=== PATIENT | female | born 1945 | race Caucasian/White ===

== ENCOUNTER 2021-01-17 12:18 | Emergency (ER) | payer MEDICARE ==
[~2021-01-17] VITALS: Ht 162.6 cm; Wt 104.0 kg
[~2021-01-17 12:18] MED LIST: ASPI-630 PO; ATOR40TA59 PO; DULO60CA7 PO; LISI1TAB23 PO
--- NOTE | 2021-01-17 13:23 | PHYS DOC ---
General Adult EDM: Chief Complaint: LOWER EXT PAIN HPI: HPI: Patient is a 75 year old female who presents with left foot redness and swelling that has been progressive since . Has become increasingly painful, red, swollen. No trauma. No breaks in the skin. No swelling or redness above the ankle. Does have some cramping behind her left leg, that she says has been attributed to a Morgan's cyst in the past. Has had difficulty walking on the foot due to pain. Denies fever/chills. Review of Systems: Review of Systems: Constitutional: Denies fever or chills. [] Eyes: Denies change in visual acuity. [] HENT: Denies nasal congestion or sore throat. [] Respiratory: Denies cough or shortness of breath. [] Cardiovascular: Denies chest pain or edema. [] GI: Denies abdominal pain, nausea, vomiting, bloody stools or diarrhea. [] : Denies dysuria. [] Musculoskeletal: Left foot pain, redness, swelling. Integument: Denies rash. [] Neurologic: Denies headache, focal weakness or sensory changes. [] Endocrine: Denies polyuria or polydipsia. [] Lymphatic: Denies swollen glands. [] Psychiatric: Denies depression or anxiety. [] Heart Score: C/O Chest Pain: No Risk Factors: Risk Factors: DM, Current or recent (<one month) smoker, HTN, HLP, family history of CAD, obesity. Risk Scores: Score 0 - 3: 2.5% MACE over next 6 weeks - Discharge Home Score 4 - 6: 20.3% MACE over next 6 weeks - Admit for Clinical Observation Score 7 - 10: 72.7% MACE over next 6 weeks - Early Invasive Strategies Allergies: Allergies: Allergies Coded Allergies Type Severity Reaction Last Updated Verified No Known Drug Allergies 12/06/20 No Physical Exam: PE: Constitutional: Well developed, well nourished, no acute distress, non-toxic appearance. [] HENT: Normocephalic, atraumatic, bilateral external ears normal, oropharynx moist, no oral exudates, nose normal. [] Eyes: PERRLA, EOMI, conjunctiva normal, no discharge. [] Neck: Normal range of motion, no tenderness, supple, no stridor. [] Cardiovascular:Heart rate regular rhythm, no murmur [] Lungs & Thorax: Bilateral breath sounds clear to auscultation [] Abdomen: Bowel sounds normal, soft, no tenderness, no masses, no pulsatile masses. [] Skin: Left foot with erythema, edema over the dorsum of the foot. Tenderness to palpation in erythematous areas. Back: No tenderness, no CVA tenderness. [] Extremities: Edema overlying the foot, but no edema at the ankle or above. DP pulse 2+ on left. Neurologic: Alert and oriented X 3, normal motor function, normal sensory function, no focal deficits noted. [] Psychologic: Affect normal, judgement normal, mood normal. [] EKG: EKG: [] Radiology/Procedures: Radiology/Procedures: [] Impression: [place] [address] IMAGING REPORT Signed PATIENT: KONSTANTIN LAUREN ACCOUNT: [id number] : 1945 LOCATION: ER AGE: 75 SEX: F EXAM STATUS: REG ER ORD. PHYSICIAN: CEDRIC NUNEZ MD REASON: foot redness, swelling PROCEDURE: VENOUS LOWER EXTREMITY LEFT EXAM: Left lower extremity venous Doppler sonogram. HISTORY: Pain and swelling. TECHNIQUE: Dang scale and color Doppler sonographic evaluation of the left lower extremity veins with spectral waveform analysis was performed. FINDINGS: There is normal color flow, normal compressibility and there are normal spectral waveforms in the common femoral, superficial femoral, popliteal, posterior tibial and greater saphenous veins. There is a 4.4 cm fluid collect ion within the popliteal fossa. IMPRESSION: 1. No Doppler evidence of lower extremity deep venous thrombosis. 2. 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 Electronically signed by: Brenda Flores MD (01/17/2021 1:55 PM) [id number] DICTATED and SIGNED BY: BRENDA FLORES MD DATE: 01/17/21 [id number] [address] [id number] IMAGING REPORT Signed PATIENT: KONSTANTIN LAUREN ACCOUNT: [id number] : 1945 LOCATION: ER AGE: 75 SEX: F EXAM STATUS: REG ER ORD. PHYSICIAN: CEDRIC NUNEZ MD REASON: foot redness, swelling PROCEDURE: FOOT LEFT 3V EXAM: Left foot, 3 views. HISTORY: Redness and swelling. COMPARISON: None. FINDINGS: 3 views of the left foot are obtained. There is no fracture, dislocation or subluxation. There is a tiny corticated ossicle adjacent to the medial aspect of the first carpal phalangeal joint. There is a tiny plantar spur. There is degenerative spurring, subchondral sclerosis and subchondral cyst formation involving the tarsometatarsal joints. IMPRESSION: 1. 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 2. No acute osseous finding. Electronically signed by: Brenda Flores MD (01/17/2021 1:37 PM) [id number] DICTATED and SIGNED BY: BRENDA FLORES MD DATE: 01/17/21 [id number] Course & Med Decision Making: Course & Med Decision Making Pertinent Labs and Imaging studies reviewed. (See chart for details) Patient is 75-year-old female who presents with atraumatic left foot redness, edema, and increasing pain. Neurovascular intact. Good pulses. Doubt vascular process. No systemic symptoms such as fever/chills, nausea, vomiting. X-ray without any lesions. Doubt osteomyelitis. DVT ultrasound negative. Seems most consistent with a cellulitis. We will treat with doxycycline. Return for systemic symptoms such as fever/chills, worsening pain. Heather Disclaimer: Heather Disclaimer: This electronic medical record was generated, in whole or in part, using a voice recognition dictation system. Departure Departure Impression: Primary Impression: Cellulitis of left foot Disposition: HOME / SELF CARE / HOMELESS Condition: STABLE Referrals: NO PCP (PCP) Additional Instructions: Your x-ray and ultrasound were normal. This seems most likely to be a skin infection called cellulitis. I like to treat you with an antibiotic called doxycycline. Please take as prescribed for 7 days. Please call your PCP to schedule follow-up appointment in the next 3 days. I expect that should start to improve by 72 hours. It likely will not improve much in the first 48 hours. If it is not improving by 72 hours please return to the emergency department for reevaluation. Please also return to the emergency department if you develop high fevers, or severely worsening pain. If you do not have a PCP, please call the number for the [facility] at [phone]. Scripts Doxycycline Hyclate (DOXYCYCLINE HYCLATE) 100 Mg Capsule 1 CAP PO BID for 7 Days, #14 CAP Prov: CEDRIC NUNEZ MD 01/17/21 CEDRIC NUNEZ MD Jan 17, 2021 13:23
[2021-01-17 13:30] VITALS: BP 148/64
--- NOTE | 2021-01-17 13:39 | RAD ---
EXAM: Left foot, 3 views. HISTORY: Redness and swelling. COMPARISON: None. FINDINGS: 3 views of the left foot are obtained. There is no fracture, dislocation or subluxation. Th ere is a tiny corticated ossicle adjacent to the medial aspect of the first carpal phalangeal joint. There is a tiny plantar spur. There is degenerative spurring, subchondral sclerosis and subchondral c yst formation involving the tarsometatarsal joints. IMPRESSION: 1. 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 2. No acute osseous finding. Electronically signed by: Brenda Montiel MD (01/17/2021 1:37 PM) [id number]
--- NOTE | 2021-01-17 13:58 | RAD ---
EXAM: Left lower extremity venous Doppler sonogram. HISTORY: Pain and swelling. TECHNIQUE: Dang scale and color Doppler sonographic evaluation of the left lower extremity veins with spectral waveform analysis was performed. FINDINGS: There is normal color flow, normal compressibility and there are normal spectral waveforms in the common femoral, superficial femoral, popliteal, posterior tibial and greater saphenous veins. There is a 4.4 cm fluid collection within the popliteal fossa. IMPRESSION: 1. No Doppler evidence of lower extremity deep venous thrombosis. 2. 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 Electronically signed by: Brenda Montiel MD (01/17/2021 1:55 PM) [id number]
[2021-01-17] MEDS ORDERED: DOXY100C3 PO (14:30)
== END 2021-01-17 14:44 | disposition home or self-care (01) ==
LOC: ER 12:18
DX: L03.116 Cellulitis of left lower limb (principal); M71.22 Synovial cyst of popliteal space [Baker], left knee
CPT/HCPCS: 73630; 93971; 99284-25

== ENCOUNTER 2021-01-25 17:11 | Inpatient (IN) | payer MEDICARE ==
[~2021-01-25] VITALS: Ht 162.6 cm; Wt 104.5 kg
[~2021-01-25 17:11] MED LIST changes: +DOXY100C3 PO
[2021-01-25 17:53] LABS: BASO % 0 % (0-3); EOS % 0 % (0-3); HEMATOCRIT 24.6 % (36.0-47.0); HEMOGLOBIN 8.4 g/dL (12.0-15.5); LYMPH # 1.1 x10^3/uL (1.0-4.8); LYMPH % 9 % (24-48); MEAN CORPUSCULAR HEMOGLOBIN 29 pg (25-35); MEAN CORPUSCULAR HGB CONC 34 g/dL (31-37); MEAN CORPUSCULAR VOLUME 85 fL (79-100); MONO # 0.8 x10^3/uL (0.0-1.1); MONO % 7 % (0-9); NEUT # 10.7 x10^3/uL (1.8-7.7); NEUT % 85 % (31-73); PLATELET COUNT 545 x10^3/uL (140-400); RED CELL DISTRIBUTION WIDTH 13.7 % (11.5-14.5); WHITE BLOOD COUNT 12.7 x10^3/uL (4.0-11.0)
--- NOTE | 2021-01-25 17:53 | PHYS DOC ---
Past Medical History Past Medical History: CAD, Hypertension Past Surgical History: No Surgical History Smoking Status: Never Smoker Alcohol Use: None General Adult EDM: Chief Complaint: VOMITING BLOOD HPI: HPI: Patient is a 75 year old female who present to ER for evaluation of vomiting blood this morning. Patient vomited one time, she noted blood in her vomitus. Patient denies any abdominal pain, no chest pain, no cough, no fever, no trouble breathing. Patient is only on a baby aspirin a day. Patient denies any abdominal pain , denies any constipation or diarrhea. Patient denies any blood in the stool. Patient just had one episode of vomiting blood this morning. Patient denies any headache. Patient was diagnosed with cellulitis of her left foot on January 17, 2021. Patient was put on doxycycline 100 mg twice a day. Review of Systems: Review of Systems: Constitutional: Denies fever or chills. [] Eyes: Denies change in visual acuity. [] HENT: Denies nasal congestion or sore throat. [] Respiratory: Denies cough or shortness of breath. [] Cardiovascular: Denies chest pain or edema. [] GI: Denies abdominal pain, nausea, bloody stools or diarrhea. Positive for 1 episode of vomiting blood. : Denies dysuria. [] Musculoskeletal: Denies back pain or joint pain. [] Integument: Denies rash. [] Neurologic: Denies headache, focal weakness or sensory changes. [] Endocrine: Denies polyuria or polydipsia. [] Lymphatic: Denies swollen glands. [] Psychiatric: Denies depression or anxiety. [] Heart Score: C/O Chest Pain: N/A Risk Factors: Risk Factors: DM, Current or recent (<one month) smoker, HTN, HLP, family history of CAD, obesity. Risk Scores: Score 0 - 3: 2.5% MACE over next 6 weeks - Discharge Home Score 4 - 6: 20.3% MACE over next 6 weeks - Admit for Clinical Observation Score 7 - 10: 72.7% MACE over next 6 weeks - Early Invasive Strategies Allergies: Allergies: Allergies Coded Allergies Type Severity Reaction Last Updated Verified No Known Drug Allergies 12/06/20 No Physical Exam: PE: Constitutional: Well developed, well nourished, no acute distress, non-toxic appearance. [] HENT: Normocephalic, atraumatic, bilateral external ears normal, oropharynx moist, no oral exudates, nose normal. [] Eyes: PERRLA, EOMI, conjunctiva normal, no discharge. [] Neck: Normal range of motion, no tenderness, supple, no stridor. [] Cardiovascular:Heart rate regular rhythm, no murmur [] Lungs & Thorax: Bilateral breath sounds clear to auscultation [] Abdomen: Bowel sounds normal, soft, no tenderness, no masses, no pulsatile masses. [] Skin: Warm, dry, no erythema, no rash. [] Back: No tenderness, no CVA tenderness. [] Extremities: No tenderness, no cyanosis, no clubbing, ROM intact, no edema. [] Neurologic: Alert and oriented X 3, normal motor function, normal sensory function, no focal deficits noted. [] Psychologic: Affect normal, judgement normal, mood normal. [] EKG: EKG: [] Radiology/Procedures: Radiology/Procedures: [] Course & Med Decision Making: Course & Med Decision Making Pertinent Labs and Imaging studies reviewed. (See chart for details) Patient is a 74-year-old female who present to ER due to vomiting blood, one episode of this morning. Patient is only on a baby aspirin a day. Patient denies any abdominal pain, no chest pain, no trouble breathing, no fever. Examination did not show any acute problem, no abdominal tenderness to palpation.. Will check some basic lab work and an acute abdominal series. Patient's care has been endorsed to the incoming physician at shift change Dr. Kamilah Hernandez. Heather Disclaimer: Heather Disclaimer: This electronic medical record was generated, in whole or in part, using a voice recognition dictation system. Departure Departure Impression: Primary Impression: Hematemesis Condition: STABLE Referrals: NO PCP (PCP) FELA JUAREZ DO Jan 25, 2021 17:52
[2021-01-25 18:01] LABS: CREATININE 1.9 mg/dL (0.6-1.0); GFR 25.9; POTASSIUM 3.8 mmol/L (3.5-5.1)
[2021-01-25 18:07] LABS: ALBUMIN 2.5 g/dL (3.4-5.0); ALBUMIN/GLOBULIN RATIO 0.6 (1.0-1.7); MAGNESIUM 1.6 mg/dL (1.8-2.4); TOTAL BILIRUBIN 0.2 mg/dL (0.2-1.0); TOTAL PROTEIN 6.9 g/dL (6.4-8.2)
[2021-01-25 18:57] LABS: ACETAMIN < 2 mcg/ml (10-30)
[2021-01-25 19:11] LABS: GASTRIC OB PAT POSITIVE (NEG)
--- NOTE | 2021-01-25 19:21 | RAD ---
Three-view acute abdominal series. HISTORY: Vomiting blood 3 views were taken for an acute abdominal series. Lungs are free of infiltrates. Heart is normal in s ize. There is thoracolumbar scoliosis. There is arthritis in the right shoulder. There is no obvious free air on the portable AP upright view. There is mild gas in the colon. There is no small bowel obs truction. There is degenerative change and scoliosis in the lumbar spine. IMPRESSION: 1. No bowel obstruction or acute finding in the abdomen. 2. Thoracolumbar scoliosis with degenerative change. 3. No acute infiltrates. Electronically signed by: Johny Spangler MD (01/25/2021 7:19 PM) [facility]
[2021-01-25] MEDS ORDERED: PANTOPRAZOLE IV PUSH 40 MG VIAL. IVP ONE (19:30)
[2021-01-25] MEDS ORDERED: IV NORMAL SALINE 1000ML BAG 1,000 ML IV ONE (19:30)
[2021-01-25] MEDS ORDERED: BISACODYL 10 MG SUPP.RECT. PR PRN (19:30)
[2021-01-25 21:00] VITALS: BP 132/41
[2021-01-25] MEDS: PANTOPRAZOLE SODIUM IV DRIP 80 MG in IV NORMAL SALINE 100ML 100 ML IV SCH (21:08)
[2021-01-25 23:00] VITALS: BP 127/62
[2021-01-26] VITALS (9 sets, daily range): BP systolic 95–132; BP diastolic 59–69
[2021-01-26] MEDS: MORPHINE SULFATE 2 MG/ML INJ. IV PRN ×2 (03:47→05:54)
--- NOTE | 2021-01-26 07:12 | PDOC1 ---
History and Physical Date of Admission Date of Admission DATE: 01/26/21 TIME: 07:06 Identification/Chief Complaint Chief Complaint Vomiting blood Source Source: Patient History of Present Illness History of Present Illness Ms Harper is a 75 year old female w/ PMHx HTN, CAD with SERGE x1, HLD, anxiety who present to ER for evaluation of vomiting blood 01/25/21 in the morning. Patient vomited one time, she noted blood in her vomitus. Her brought it in and there was > 500cc red gelatinous material. Patient is only on a baby aspirin a day, has been instructed by her primary care physician not to take ibuprofen to avoid renal side effects. She does have epigastric abdominal pain with associated nausea, denies any constipation or diarrhea and no blood in the stool, but has had dark tarry stools over the past 24 hours. Patient just had one episode of vomiting blood in the morning. Patient denies any headache. Patient was diagnosed with cellulitis of her left foot on January 17, 2021 and possible left bakers cyst. Patient was put on doxycycline 100 mg twice a day and topical voltaren with some improvement. Since then over the past 2 days she has had more severe pain in the dorsum of her left foot and today is unable to bear weight on it. WBC 12.7, Hb 8.4, platelets 545, NA 134, K3.8, BUN 82, CR 1.9, glucose 194, calcium 9, mag 1.6, bilirubin 0.2, AST 11, ALT 14, albumin 2.5, acetaminophen level undetectable, gastric occult positive. Acute abdominal series with no obstruction no acute abnormalities. Admitted for further care. Past Medical History Cardiovascular: CAD, HTN, Hyperlipidemia Past Surgical History Past Surgical History: Other (cardiac stenting) Family History Family History: Heart Disease, High Cholestrol, Hypertension Social History Smoke: No ALCOHOL: none Drugs: None Current Problem List Problem List Problems Medical Problems: (1) Hematemesis Status: Acute Current Medications Current Medications Current Medications Pantoprazole Sodium (PROTONIX VIAL for IV PUSH) 80 mg 1X ONCE IVP Last administered on 01/25/21at 20:32; Start 01/25/21 at 19:30; Stop 01/25/21 at 19:31; Status DC Pantoprazole Sodium 80 mg/ Sodium Chloride 100 ml @ 10 mls/hr Q10H IV Last a dministered on 01/25/21at 21:08; Start 01/25/21 at 20:00; Stop 01/28/21 at 19:59 Morphine Sulfate (Morphine Sulfate) 1 mg PRN Q1HR PRN IV PAIN Last administered on 01/26/21at 05:54; Start 01/25/21 at 19:30 Bisacodyl (Dulcolax Supp) 10 mg PRN DAILY PRN [place] CONSTIPATION; Start 01/25/21 at 19:30 Sodium Chloride 1,000 ml @ 125 mls/hr 1X ONCE IV Last administered on 01/25/21at 21:08; Start 01/25/21 at 19:30; Stop 01/26/21 at 03:29; Status DC Influenza Virus Vaccine Quadrival (Flulaval Quad [id number] Syringe) 0.5 ml ONCE ONCE VAX IM ; Start 01/26/21 at 09:00; Stop 01/26/21 at 09:01 Active Scripts Active Reported Atorvastatin Calcium 40 Mg Tablet 40 Mg PO DAILY Lisinopril-Hctz 10-12.5 Mg Tab (Lisinopril/Hydrochlorothiazide) 1 Each Tablet 1 Tab PO DAILY Aspirin 81 Mg Tab.chew 81 Mg PO DAILY Allergies Allergies: Coded Allergies: No Known Drug Allergies (Unverified , 12/06/20) ROS General: YES: Fatigue, Malaise; No: Chills, Night Sweats, Appetite, Other PSYCHOLOGICAL ROS: YES: Anxiety; No: Behavioral Disorder, Concentration difficultie, Decreased libido, Depression, Disorientation, Hallucinations, Hostility, Irritablity, Memory difficulties, Mood Swings, Obsessive thoughts, Physical abuse, Sexual abuse, Sleep disturbances, Suicidal ideation, Other Eyes: No Blurry vision, No Decreased vision, No Double vision, No Dry eyes, No Excessive tearing, No Eye Pain, No Itchy Eyes, No Loss of vision, No Photophobia, No Scotomata, No Uses contacts, No Uses glasses, No Other HEENT: No: Heacaches, Visual Changes, Hearing change, Nasal congestion, Nasal discharge, Oral lesions, Sinus pain, Sore Throat, Epistaxis, Sneezing, Snoring, Tinnitus, Vertigo, Vocal changes, Other ALLERGY AND IMMUNOLOGY: No: Hives, Insect Bite Sensitivity, Itchy/Watery Eyes, Nasal Congestion, Post Nasal Drip, Seasonal Allergies, Other Hematological and Lymphatic: No: Bleeding Problems, Blood Clots, Blood Transfusions, Brusing, Night Sweats, Pallor, Swollen Lymph Nodes, Other ENDOCRINE: No: Breast Changes, Galactorrhea, Hair Pattern Changes, Hot Flashes, Malaise/lethargy, Mood Swings, Palpitations, Polydipsia/polyuria, Skin Changes, Temperature Intolerance, Unexpected Weight Changes, Other Breast: No New/Changing Breast Lumps, No Nipple changes, No Nipple discharge, No Other Respiratory: No: Cough, Hemoptysis, Orthopnea, Pleuritic Pain, Shortness of breath, SOB with excertion, Sputum Changes, Stridor, Tachypnea, Wheezing, Other Cardiovascular: No Chest Pain, No Palpitations, No Orthopnea, No Paroxysmal Noc. Dyspnea, No Edema, No Lt Headedness, No Other Gastrointestinal: Yes Nausea, Yes Vomiting, Yes Abdominal Pain, Yes Melena Genitourinary: No Dysuria, No Frequency, No Incontinence, No Hematuria, No Retention, No Discharge, No Urgency, No Pain, No Flank Pain, No Other, No , No , No , No , No , No , No Musculoskeletal: No Gait Disturbance, No Joint Pain, No Joint Stiffness, No Joint Swelling, No Muscle Pain, No Muscular Weakness, No Pain In:, No Swelling In:, No Other Neurological: No Behavorial Changes, No Bowel/Bladder ControlChng, No Confus ion, No Dizziness, No Gait Disturbance, No Headaches, No Impaired Coord/balance, No Memory Loss, No Numbness/Tingling, No Seizures, No Speech Problems, No Tremors, No Visual Changes, No Weakness, No Other Skin: No Dry Skin, No Eczema, No Hair Changes, No Lumps, No Mole Changes, No Mottling, No Nail Changes, No Pruritus, No Rash, No Skin Lesion Changes, No Othe r, No Acne Physical Exam General: Alert, Oriented X3, Cooperative, moderate distress HEENT: Atraumatic, PERRLA, EOMI, Mucous membr. moist/pink Lungs: Clear to auscultation, Normal air movement Heart: S1S2, RRR, no thrills, no rubs, no gallops, no murmurs Abdomen: Normal bowel sounds, Soft, No hepatosplenomegaly, No masses, Other (epigastric tenderness) Extremities: No clubbing, No cyanosis, No edema, Normal pulses, Other (tender swollen dorsum of left foot. No erythema) Skin: No rashes, No breakdown, No significant lesion Neuro: Normal speech, Strength at 5/5 X4 ext, Normal tone, Sensation intact, Cranial nerves 3-12 NL, Reflexes 2+ Psych/Mental Status: Mental status NL, Mood NL Vitals Vitals Vital Signs Date Time Temp Pulse Resp B/P (MAP) Pulse Ox O2 Delivery O2 Flow Rate FiO2 01/26/21 03:58 98.3 85 20 123/63 (83) 97 98.3 01/25/21 21:15 Room Air Labs Labs Laboratory Tests Test 01/25/21 17:37 01/25/21 18:09 01/25/21 19:00 White Blood Count 12.7 x10^3/uL (4.0-11.0) Red Blood Count 2.90 x10^6/uL (3.50-5.40) Hemoglobin 8.4 g/dL (12.0-15.5) Hematocrit 24.6 % (36.0-47.0) Mean Corpuscular Volume 85 fL (79-100) Mean Corpuscular Hemoglobin 29 pg (25-35) Mean Corpuscular Hemoglobin Concent 34 g/dL (31-37) Red Cell Distribution Width 13.7 % (11.5-14.5) Platelet Count 545 x10^3/uL (140-400) Neutrophils (%) (Auto) 85 % (31-73) Lymphocytes (%) (Auto) 9 % (24-48) Monocytes (%) (Auto) 7 % (0-9) Eosinophils (%) (Auto) 0 % (0-3) Basophils (%) (Auto) 0 % (0-3) Neutrophils # (Auto) 10.7 x10^3/uL (1.8-7.7) Lymphocytes # (Auto) 1.1 x10^3/uL (1.0-4.8) Monocytes # (Auto) 0.8 x10^3/uL (0.0-1.1) Eosinophils # (Auto) 0.0 x10^3/uL (0.0-0.7) Basophils # (Auto) 0.0 x10^3/uL (0.0-0.2) Sodium Level 134 mmol/L (136-145) Potassium Level 3.8 mmol/L (3.5-5.1) Chloride Level 97 mmol/L (98-107) Carbon Dioxide Level 25 mmol/L (21-32) Anion Gap 12 (6-14) Blood Urea Nitrogen 82 mg/dL (7-20) Creatinine 1.9 mg/dL (0.6-1.0) Estimated GFR (Cockcroft-Gault) 25.9 BUN/Creatinine Ratio 43 (6-20) Glucose Level 194 mg/dL (70-99) Calcium Level 9.0 mg/dL (8.5-10.1) Magnesium Level 1.6 mg/dL (1.8-2.4) Total Bilirubin 0.2 mg/dL (0.2-1.0) Aspartate Amino Transf (AST/SGOT) 11 U/L (15-37) Alanine Aminotransferase (ALT/SGPT) 14 U/L (14-59) Alkaline Phosphatase 71 U/L (46-116) Total Protein 6.9 g/dL (6.4-8.2) Albumin 2.5 g/dL (3.4-5.0) Albumin/Globulin Ratio 0.6 (1.0-1.7) Acetaminophen Level < 2 mcg/ml (10-30) Acetaminophen Last Dose Date Acetaminophen Last Dose Time Prothrombin Time 14.0 SEC (11.7-14.0) Prothromb Time International Ratio 1.1 (0.8-1.1) Activated Partial Thromboplast Time 36 SEC (24-38) Gastric Fluid Occult Blood Positive (NEG) Laboratory Tests Test 01/25/21 17:37 01/25/21 18:09 01/25/21 19:00 White Blood Count 12.7 x10^3/uL (4.0-11.0) Red Blood Count 2.90 x10^6/uL (3.50-5.40) Hemoglobin 8.4 g/dL (12.0-15.5) Hematocrit 24.6 % (36.0-47.0) Mean Corpuscular Volume 85 fL (79-100) Mean Corpuscular Hemoglobin 29 pg (25-35) Mean Corpuscular Hemoglobin Concent 34 g/dL (31-37) Red Cell Distribution Width 13.7 % (11.5-14.5) Platelet Count 545 x10^3/uL (140-400) Neutrophils (%) (Auto) 85 % (31-73) Lymphocytes (%) (Auto) 9 % (24-48) Monocytes (%) (Auto) 7 % (0-9) Eosinophils (%) (Auto) 0 % (0-3) Basophils (%) (Auto) 0 % (0-3) Neutrophils # (Auto) 10.7 x10^3/uL (1.8-7.7) Lymphocytes # (Auto) 1.1 x10^3/uL (1.0-4.8) Monocytes # (Auto) 0.8 x10^3/uL (0.0-1.1) Eosinophils # (Auto) 0.0 x10^3/uL (0.0-0.7) Basophils # (Auto) 0.0 x10^3/uL (0.0-0.2) Sodium Level 134 mmol/L (136-145) Potassium Level 3.8 mmol/L (3.5-5.1) Chloride Level 97 mmol/L (98-107) Carbon Dioxide Level 25 mmol/L (21-32) Anion Gap 12 (6-14) Blood Urea Nitrogen 82 mg/dL (7-20) Creatinine 1.9 mg/dL (0.6-1.0) Estimated GFR (Cockcroft-Gault) 25.9 BUN/Creatinine Ratio 43 (6-20) Glucose Level 194 mg/dL (70-99) Calcium Level 9.0 mg/dL (8.5-10.1) Magnesium Level 1.6 mg/dL (1.8-2.4) Total Bilirubin 0.2 mg/dL (0.2-1.0) Aspartate Amino Transf (AST/SGOT) 11 U/L (15-37) Alanine Aminotransferase (ALT/SGPT) 14 U/L (14-59) Alkaline Phosphatase 71 U/L (46-116) Total Protein 6.9 g/dL (6.4-8.2) Albumin 2.5 g/dL (3.4-5.0) Albumin/Globulin Ratio 0.6 (1.0-1.7) Acetaminophen Level < 2 mcg/ml (10-30) Acetaminophen Last Dose Date Acetaminophen Last Dose Time Prothrombin Time 14.0 SEC (11.7-14.0) Prothromb Time International Ratio 1.1 (0.8-1.1) Activated Partial Thromboplast Time 36 SEC (24-38) Gastric Fluid Occult Blood Positive (NEG) Images Images Acute abdomen series: 3 views were taken for an acute abdominal series. Lungs are free of infiltrates. Heart is normal in size. There is thoracolumbar scoliosis. There is arthritis in the right shoulder. There is no obvious free air on the portable AP upright view. There is mild gas in the colon. There is no small bowel obstruction. There is degenerative change and scoliosis in the lumbar spine. IMPRESSION: 1. No bowel obstruction or acute finding in the abdomen. 2. Thoracolumbar scoliosis with degenerative change. 3. No acute infiltrates. VTE Prophylaxis Ordered VTE Prophylaxis Devices: Yes VTE Pharmacological Prophylaxi: Contraindicated Assessment/Plan Assessment/Plan A/P: Hematemesis - with acute blood loss anemia. GI consulted. Protonix GTT. Monitor serial H&H. Type and screen Intractable left foot pain - will repeat imaging, consult podiatry for further treatment of midfoot arthritis YARED - likely vasomotor nephropathy from vomiting in the setting of taking diuretics. Hydrate HTN - hold DAQUAN/HCTZ for YARED. hold asa for UGIB Leukocytosis - likely reactive with UGIB. will trend Hyponatremia - likely hypovolemic, will trend after hydration HLD - hold statin while NPO CAD s/p stenting - remote history, hold ASA for GI bleed FEN - NPO PPX - SCDs, PPI FULL CODE Dispo - inpatient for above Justifications for Admission Abdominal Pain Indications Is NPO status required?: Yes Justification for admission: Patient may require to be NPO for greater 24hours making it medically necessary to manage patient as inpatient. Other Justification VANDANA GANDHI MD Jan 26, 2021 07:12
[2021-01-26] MEDS ORDERED: ACETAMINOPHEN 650 MG SUPP.RECT. PR PRN (07:15)
[2021-01-26 07:32] LABS: BASO % 0 % (0-3); EOS # 0.1 x10^3/uL (0.0-0.7); EOS % 1 % (0-3); HEMATOCRIT 21.1 % (36.0-47.0); HEMOGLOBIN 7.2 g/dL (12.0-15.5); LYMPH # 1.9 x10^3/uL (1.0-4.8); LYMPH % 18 % (24-48); MEAN CORPUSCULAR HEMOGLOBIN 29 pg (25-35); MEAN CORPUSCULAR HGB CONC 34 g/dL (31-37); MEAN CORPUSCULAR VOLUME 85 fL (79-100); MONO # 0.7 x10^3/uL (0.0-1.1); MONO % 7 % (0-9); NEUT # 7.9 x10^3/uL (1.8-7.7); NEUT % 75 % (31-73); PLATELET COUNT 505 x10^3/uL (140-400); RED BLOOD COUNT 2.49 x10^6/uL (3.50-5.40); WHITE BLOOD COUNT 10.5 x10^3/uL (4.0-11.0)
[2021-01-26 08:17] LABS: CALCIUM 8.8 mg/dL (8.5-10.1); CREATININE 1.5 mg/dL (0.6-1.0); POTASSIUM 3.6 mmol/L (3.5-5.1)
[2021-01-26] MEDS: PANTOPRAZOLE SODIUM IV DRIP 80 MG in IV NORMAL SALINE 100ML 100 ML IV SCH (08:48)
[2021-01-26] MEDS ORDERED: FLU VACC QUAD 21-22 (6MOS+) PF 0.5 ML SYRINGE. VAX IM ONE (09:00)
[2021-01-26] MEDS ORDERED: fentaNYL PF VIAL 100 MCG/2 ML VIAL IVP PRN (09:00)
--- NOTE | 2021-01-26 09:25 | PDOC2 ---
GI CONSULT Date of Service: DATE: 01/26/21 TIME: 09:24 Reason For Consult: hematemesis HPI: HPI: 75 y/o female admitted through ER. Dizziness w/ standing for a couple weeks. Yesterday morning at 10:30, "I tried to pass out" in the restroom and then vomited "black" and had a black stool. Occasional heartburn (improved w/ avoidance of spicy foods and increased milk consumption). No dysphagia, chronic n/v, abd pain, diarrhea, constipation, weight loss, or hematochezia. Decreased appetite w/ recent LLE cellulitis (has been on antibiotic). No previous EGD or colonoscopy. No GB, liver, pancreas, or PUD history. Advised by PCP not to take NSAIDs due to possible harm to kidneys. Takes ASA 81mg QD. Was taking Tylenol for cellulitis discomfort. Denies h/o anemia. Indicates stressful home life w/ autistic granddaughter. PMH: PMH: CAD w/ stents, GA, HTN, HLD, anxiety/depression Social History: Smoke: No ALCOHOL: none Drugs: None ROS: GEN: Denies fevers, chills, sweats HEENT: Denies blurred vision, sore throat CV: Denies chest pain RESP: Denies shortness of air, cough GI: Per HPI : Denies hematuria, dysuria ENDO: Denies weight changes NEURO: +dizziness MSK: +weakness SKIN: Denies jaundice, pruritus Vitals: Vitals: Vital Signs Date Time Temp Pulse Resp B/P (MAP) Pulse Ox O2 Delivery O2 Flow Rate FiO2 01/26/21 08:30 Room Air 01/26/21 07:00 98.4 85 18 128/62 (84) 93 98.4 Labs: Labs: Laboratory Tests Test 01/25/21 17:37 01/25/21 18:09 01/25/21 19:00 01/26/21 06:45 White Blood Count 12.7 x10^3/uL (4.0-11.0) 10.5 x10^3/uL (4.0-11.0) Red Blood Count 2.90 x10^6/uL (3.50-5.40) 2.49 x10^6/uL (3.50-5.40) Hemoglobin 8.4 g/dL (12.0-15.5) 7.2 g/dL (12.0-15.5) Hematocrit 24.6 % (36.0-47.0) 21.1 % (36.0-47.0) Mean Corpuscular Volume 85 fL (79-100) 85 fL (79-100) Mean Corpuscular Hemoglobin 29 pg (25-35) 29 pg (25-35) Mean Corpuscular Hemoglobin Concent 34 g/dL (31-37) 34 g/dL (31-37) Red Cell Distribution Width 13.7 % (11.5-14.5) 14.0 % (11.5-14.5) Platelet Count 545 x10^3/uL (140-400) 505 x10^3/uL (140-400) Neutrophils (%) (Auto) 85 % (31-73) 75 % (31-73) Lymphocytes (%) (Auto) 9 % (24-48) 18 % (24-48) Monocytes (%) (Auto) 7 % (0-9) 7 % (0-9) Eosinophils (%) (Auto) 0 % (0-3) 1 % (0-3) Basophils (%) (Auto) 0 % (0-3) 0 % (0-3) Neutrophils # (Auto) 10.7 x10^3/uL (1.8-7.7) 7.9 x10^3/uL (1.8-7.7) Lymphocytes # (Auto) 1.1 x10^3/uL (1.0-4.8) 1.9 x10^3/uL (1.0-4.8) Monocytes # (Auto) 0.8 x10^3/uL (0.0-1.1) 0.7 x10^3/uL (0.0-1.1) Eosinophils # (Auto) 0.0 x10^3/uL (0.0-0.7) 0.1 x10^3/uL (0.0-0.7) Basophils # (Auto) 0.0 x10^3/uL (0.0-0.2) 0.0 x10^3/uL (0.0-0.2) Sodium Level 134 mmol/L (136-145) 138 mmol/L (136-145) Potassium Level 3.8 mmol/L (3.5-5.1) 3.6 mmol/L (3.5-5.1) Chloride Level 97 mmol/L (98-107) 103 mmol/L (98-107) Carbon Dioxide Level 25 mmol/L (21-32) 26 mmol/L (21-32) Anion Gap 12 (6-14) 9 (6-14) Blood Urea Nitrogen 82 mg/dL (7-20) 69 mg/dL (7-20) Creatinine 1.9 mg/dL (0.6-1.0) 1.5 mg/dL (0.6-1.0) Estimated GFR (Cockcroft-Gault) 25.9 34.0 BUN/Creatinine Ratio 43 (6-20) Glucose Level 194 mg/dL (70-99) 113 mg/dL (70-99) Calcium Level 9.0 mg/dL (8.5-10.1) 8.8 mg/dL (8.5-10.1) Magnesium Level 1.6 mg/dL (1.8-2.4) Total Bilirubin 0.2 mg/dL (0.2-1.0) Aspartate Amino Transf (AST/SGOT) 11 U/L (15-37) Alanine Aminotransferase (ALT/SGPT) 14 U/L (14-59) Alkaline Phosphatase 71 U/L (46-116) Total Protein 6.9 g/dL (6.4-8.2) Albumin 2.5 g/dL (3.4-5.0) Albumin/Globulin Ratio 0.6 (1.0-1.7) Acetaminophen Level < 2 mcg/ml (10-30) Acetaminophen Last Dose Date Acetaminophen Last Dose Time Prothrombin Time 14.0 SEC (11.7-14.0) Prothromb Time International Ratio 1.1 (0.8-1.1) Activated Partial Thromboplast Time 36 SEC (24-38) Gastric Fluid Occult Blood Positive (NEG) Allergies: Coded Allergies: No Known Drug Allergies (Unverified , 12/06/20) Medications: Current Medications Medications (Trade) Dose Ordered Sig/Ajay Route PRN Reason Start Time Stop Time Status Last Admin Dose Admin Pantoprazole Sodium (PROTONIX VIAL for IV PUSH) 80 mg 1X ONCE IVP 01/25/21 19:30 01/25/21 19:31 DC 01/25/21 20:32 Pantoprazole Sodium 80 mg/ Sodium Chloride 100 ml @ 10 mls/hr Q10H IV 01/25/21 20:00 01/28/21 19:59 01/26/21 08:48 Morphine Sulfate (Morphine Sulfate) 1 mg PRN Q1HR PRN IV PAIN 01/25/21 19:30 01/26/21 05:54 Sodium Chloride 1,000 ml @ 125 mls/hr 1X ONCE IV 01/25/21 19:30 01/26/21 03:29 DC 01/25/21 21:08 Imaging: Imaging: AAS 01/25 IMPRESSION: 1. No bowel obstruction or acute finding in the abdomen. 2. Thoracolumbar scoliosis with degenerative change. 3. No acute infiltrates. PE: GEN: NAD HEENT: Atraumatic, PERRL LUNGS: CTAB HEART: RRR ABD: NABS, S/ND/NT EXTREMITY: No edema SKIN: No jaundice NEURO/PSYCH: A & O 3 A/P: A/P: ?hematemesis/melena Normocytic anemia, YARED Recent cellulitis, decreased appetite Occasional heartburn CRC screen - none -- EGD tomorrow r/o UGI source. If unrevealing, plan for outpt colonoscopy - she will consider. IV PPI, transfuse 1 unit pRBCs, check anemia parameters. Okay to clear liquids today, NPO at midnight. COVID pending. PRETTY RO Jan 26, 2021 09:25
[2021-01-26] MEDS: DICLOFENAC SODIUM 1% TOPICAL GEL 100GM TUBE. TP SCH ×2 (09:56→21:33)
[2021-01-26] MEDS ORDERED: MAGNESIUM SULFATE 1GM 100 ML IV ONE (10:00)
[2021-01-26] MEDS: CYANOCOBALAMIN (VITAMIN B-12) 1,000 MCG/ML VIAL. IM SCH (12:38)
--- NOTE | 2021-01-26 13:24 | NUR ---
SS following for discharge planning. SS reviewed pt chart and discussed with pt RN. Pt is from home with spouse and is currently on room air. COVID19 negative. GI consulted. EGD tomorrow. NPO for procedure. SS will continue to follow for discharge planning.
--- NOTE | 2021-01-26 13:44 | RAD ---
Left foot 3 views. HISTORY: Worsening pain, unable to bear weight 3 views were taken for an acute abdominal series. There is joint space narrowing and erosive changes suggesting arthritis at the second third tarsal metatarsal joints. There is also irregularity between the navicular and first cuneiform from arthritis. There is no acute fracture. IMPRESSION: 1. 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 2. No fracture or other acute osseous normality. Electronically signed by: Johny Spangler MD (01/26/2021 1:42 PM) [facility]
[2021-01-26] MEDS: PANTOPRAZOLE IV PUSH 40 MG VIAL. IVP SCH (15:59)
--- NOTE | 2021-01-26 16:16 | NUR ---
RICARDO Garcia notified this RN that pt's MRI is pending approval and will most likely not be done today, despite STAT order. Will await approval.
--- NOTE | 2021-01-26 17:46 | PDOC2 ---
CONSULT Date of Consult Date of Consult DATE: 01/26/21 TIME: 16:49 Reason for Consult Reason for Consult: Left foot pain Referring Physician Referring Physician: Dr. Carrera Identification/Chief Complaint Chief Complaint Left foot swelling, pain Source Source: Patient History of Present Illness Reason for Visit: Patient without past history of diabetes, autoimmune disease who was consulted on subacute left midfoot swelling and pain. The pain started on 01/13 without any inciting events. It was red hot and swollen circumferentially to the mid foot joint. Subsequent ER evaluation on 01/17 was negative for DVT, soft tissue emphysema or acute cortical interruption on x-ray. She was then treated for cellulitis with doxycycline. The swelling and redness improved some but returned in the last few days, likely triggered by activities?. The pain is upwards to 10 out of 10, worse at the midfoot but can radiate proximally to the ankle joint. It is described as sharp, dull and achy all the above. The pain is worse with activity. It is even noticeable at rest. Otherwise, she denies any taking any anti-inflammatory medicine given the GI discomfort. She has not been using the Voltaren gel at home. Otherwise, she denies any constitutional symptoms, polyarthralgia, rashes, UTI symptoms or recent travel. Per chart review, patient was admitted for hemoptysis. Upon admission, she was also found with mild leukocytosis, WBC 12.7 without fever. Past Medical History Cardiovascular: CAD, HTN, Hyperlipidemia Past Surgical History Past Surgical History: Other (cardiac stenting) Family History Family History: Heart Disease, High Cholestrol, Hypertension Social History No ALCOHOL: none Drugs: None Current Problem List Problem List Problems Medical Problems: (1) Hematemesis Status: Acute Current Medications Current Medications Current Medications Pantoprazole Sodium (PROTONIX VIAL for IV PUSH) 80 mg 1X ONCE IVP Last administered on 01/25/21at 20:32; Start 01/25/21 at 19:30; Stop 01/25/21 at 19:31; Status DC Pantoprazole Sodium 80 mg/ Sodium Chloride 100 ml @ 10 mls/hr Q10H IV Last administered on 01/26/21at 08:48; Start 01/25/21 at 20:00; Stop 01/26/21 at 09:29; Status DC Morphine Sulfate (Morphine Sulfate) 1 mg PRN Q1HR PRN IV PAIN Last administered on 01/26/21at 05:54; Start 01/25/21 at 19:30 Bisacodyl (Dulcolax Supp) 10 mg PRN DAILY PRN [place] CONSTIPATION; Start 01/25/21 at 19:30 Sodium Chloride 1,000 ml @ 125 mls/hr 1X ONCE IV Last administered on 01/25/21at 21:08; Start 01/25/21 at 19:30; Stop 01/26/21 at 03:29; Status DC Influenza Virus Vaccine Quadrival (Flulaval Quad [id number] Syringe) 0.5 ml ONCE ONCE VAX IM ; Start 01/26/21 at 09:00; Stop 01/26/21 at 09:01; Status DC Acetaminophen (Tylenol Supp) 650 mg PRN Q6HRS PRN MN MILD PAIN / TEMP > 100.3'F; Start 01/26/21 at 07:15 Fentanyl Citrate (Fentanyl 2ml Vial) 25 mcg PRN Q3HRS PRN IVP SEVERE PAIN 7-10; Start 01/26/21 at 09:00 Diclofenac Sodium (Voltaren) 1 sammie BID TP Last administered on 01/26/21at 09:56; Start 01/26/21 at 10:00 Magnesium Sulfate/ Dextrose 100 ml @ 100 mls/hr 1X ONCE IV Last administered on 01/26/21at 09:54; Start 01/26/21 at 10:00; Stop 01/26/21 at 10:59; Status DC Pantoprazole Sodium (PROTONIX VIAL for IV PUSH) 40 mg BIDAC IVP Last administered on 01/26/21at 15:59; Start 01/26/21 at 16:30 Cyanocobalamin (Vitamin B-12 Inj) 1,000 mcg DAILY IM Last administered on 01/26/21at 12:38; Start 01/26/21 at 13:00 Ringer's Solution 1,000 ml @ 50 mls/hr Q20H IV ; Start 01/27/21 at 07:00; Stop 01/27/21 at 18:59 Active Scripts Active Reported Atorvastatin Calcium 40 Mg Tablet 40 Mg PO DAILY Lisinopril-Hctz 10-12.5 Mg Tab (Lisinopril/Hydrochlorothiazide) 1 Each Tablet 1 Tab PO DAILY Aspirin 81 Mg Tab.chew 81 Mg PO DAILY Allergies Allergies: Coded Allergies: No Known Drug Allergies (Unverified , 12/06/20) ROS Review of System CONSTITUTIONAL: No fever. No chills. No dizziness. No weakness. CARDIOVASCULAR: No chest pain. No palpitations. No lower extremity edema. RESPIRATORY: No shortness of breath, cough, pain with respiration. No hemoptysis. No dyspnea. GASTROINTESTINAL: Normal appetite. No nausea, vomiting, diarrhea. GENITOURINARY: No frequency, urgency, nocturia. No hematuria or dysuria. MUSCULOSKELETAL: Refer to HPI. INTEGUMENTARY: No abrasions, lymphangitis. NEUROLOGIC: No numbness or tingling of the extremities. No weakness. PSYCHIATRIC: No confusion. ENDOCRINE: No fatigue. No weakness. HEMATOLOGICAL: No bleeding. No petechiae. No bruising. ALLERGIES: No asthma. No urticaria Physical Exam Physical Exam General: AOx3, pleasant without distress Left lower extremity exam: VASC: - 2/4 DP/PT pulses palpable - Capillary refill time less then 5 sec - [+] Moderate to severe non-pitting edema noted circumferentially to Lisfranc joint especially the dorsal lateral aspect but overall circumferential - [+] Mild erythema overlying the dorsal lateral Lisfranc joint DERM: - [-] open wounds/lesions, signs of acute infection - [-] ecchymosis or fx blisters NEURO: - Sensation intact via light touch MUSC: - [+] TTP circumferentially at Lisfranc joint especially at the dorsal lateral aspect - [-] Piano morales test or inversion/eversion stress test across the Lisfranc - [-] TTP across the ankle joint with passive ROM and axial compression - [-] Crepitus or catching with passive ankle joint or Lisfranc joint ROM - [+] Mild TTP to the NCJ medially and plantarly - [+] TTP at tibialis anterior insertion site and PT tendon insertion site medially and plantarly without tendon strength deficit - 5/5 muscle strength across the ankle joint - Reduced ankle joint dorsiflexion with knee extended, improves with knee flexed - [-] TTP at peroneal tendons, Achilles tendon, PT tendon Vitals VITALS Vital Signs Date Time Temp Pulse Resp B/P (MAP) Pulse Ox O2 Delivery O2 Flow Rate FiO2 01/26/21 11:00 98.0 85 18 128/59 (82) 100 Room Air 98.0 Labs Labs Laboratory Tests Test 01/25/21 17:37 01/25/21 18:09 01/25/21 19:00 01/26/21 06:45 White Blood Count 12.7 x10^3/uL (4.0-11.0) 10.5 x10^3/uL (4.0-11.0) Red Blood Count 2.90 x10^6/uL (3.50-5.40) 2.48 x10^6/uL (3.50-5.70) Hemoglobin 8.4 g/dL (12.0-15.5) 7.2 g/dL (12.0-15.5) Hematocrit 24.6 % (36.0-47.0) 21.1 % (36.0-47.0) Mean Corpuscular Volume 85 fL (79-100) 85 fL (79-100) Mean Corpuscular Hemoglobin 29 pg (25-35) 29 pg (25-35) Mean Corpuscular Hemoglobin Concent 34 g/dL (31-37) 34 g/dL (31-37) Red Cell Distribution Width 13.7 % (11.5-14.5) 14.0 % (11.5-14.5) Platelet Count 545 x10^3/uL (140-400) 505 x10^3/uL (140-400) Neutrophils (%) (Auto) 85 % (31-73) 75 % (31-73) Lymphocytes (%) (Auto) 9 % (24-48) 18 % (24-48) Monocytes (%) (Auto) 7 % (0-9) 7 % (0-9) Eosinophils (%) (Auto) 0 % (0-3) 1 % (0-3) Basophils (%) (Auto) 0 % (0-3) 0 % (0-3) Neutrophils # (Auto) 10.7 x10^3/uL (1.8-7.7) 7.9 x10^3/uL (1.8-7.7) Lymphocytes # (Auto) 1.1 x10^3/uL (1.0-4.8) 1.9 x10^3/uL (1.0-4.8) Monocytes # (Auto) 0.8 x10^3/uL (0.0-1.1) 0.7 x10^3/uL (0.0-1.1) Eosinophils # (Auto) 0.0 x10^3/uL (0.0-0.7) 0.1 x10^3/uL (0.0-0.7) Basophils # (Auto) 0.0 x10^3/uL (0.0-0.2) 0.0 x10^3/uL (0.0-0.2) Sodium Level 134 mmol/L (136-145) 138 mmol/L (136-145) Potassium Level 3.8 mmol/L (3.5-5.1) 3.6 mmol/L (3.5-5.1) Chloride Level 97 mmol/L (98-107) 103 mmol/L (98-107) Carbon Dioxide Level 25 mmol/L (21-32) 26 mmol/L (21-32) Anion Gap 12 (6-14) 9 (6-14) Blood Urea Nitrogen 82 mg/dL (7-20) 69 mg/dL (7-20) Creatinine 1.9 mg/dL (0.6-1.0) 1.5 mg/dL (0.6-1.0) Estimated GFR (Cockcroft-Gault) 25.9 34.0 BUN/Creatinine Ratio 43 (6-20) Glucose Level 194 mg/dL (70-99) 113 mg/dL (70-99) Calcium Level 9.0 mg/dL (8.5-10.1) 8.8 mg/dL (8.5-10.1) Magnesium Level 1.6 mg/dL (1.8-2.4) Total Bilirubin 0.2 mg/dL (0.2-1.0) Aspartate Amino Transf (AST/SGOT) 11 U/L (15-37) Alanine Aminotransferase (ALT/SGPT) 14 U/L (14-59) Alkaline Phosphatase 71 U/L (46-116) Total Protein 6.9 g/dL (6.4-8.2) Albumin 2.5 g/dL (3.4-5.0) Albumin/Globulin Ratio 0.6 (1.0-1.7) Acetaminophen Level < 2 mcg/ml (10-30) Acetaminophen Last Dose Date Acetaminophen Last Dose Time Prothrombin Time 14.0 SEC (11.7-14.0) Prothromb Time International Ratio 1.1 (0.8-1.1) Activated Partial Thromboplast Time 36 SEC (24-38) Gastric Fluid Occult Blood Positive (NEG) Absolute Reticulocyte Count 0.038 x10^6/uL (0.020-0.120) Percent Reticulocyte Count 1.5 % (0.5-2.3) Immature Reticulocyte Fraction 0.51 (0.20-0.60) Test 01/26/21 10:05 01/26/21 10:30 SARS-CoV-2 Antigen (Rapid) Negative (NEGATIVE) Iron Level 41 ug/dL (50-170) Total Iron Binding Capacity 219 ug/dL (250-450) Iron Saturation 19 % (15-34) Vitamin B12 Level 206 pg/mL (247-911) Laboratory Tests Test 01/25/21 17:37 01/25/21 18:09 01/25/21 19:00 01/26/21 06:45 White Blood Count 12.7 x10^3/uL (4.0-11.0) 10.5 x10^3/uL (4.0-11.0) Red Blood Count 2.90 x10^6/uL (3.50-5.40) 2.48 x10^6/uL (3.50-5.70) Hemoglobin 8.4 g/dL (12.0-15.5) 7.2 g/dL (12.0-15.5) Hematocrit 24.6 % (36.0-47.0) 21.1 % (36.0-47.0) Mean Corpuscular Volume 85 fL (79-100) 85 fL (79-100) Mean Corpuscular Hemoglobin 29 pg (25-35) 29 pg (25-35) Mean Corpuscular Hemoglobin Concent 34 g/dL (31-37) 34 g/dL (31-37) Red Cell Distribution Width 13.7 % (11.5-14.5) 14.0 % (11.5-14.5) Platelet Count 545 x10^3/uL (140-400) 505 x10^3/uL (140-400) Neutrophils (%) (Auto) 85 % (31-73) 75 % (31-73) Lymphocytes (%) (Auto) 9 % (24-48) 18 % (24-48) Monocytes (%) (Auto) 7 % (0-9) 7 % (0-9) Eosinophils (%) (Auto) 0 % (0-3) 1 % (0-3) Basophils (%) (Auto) 0 % (0-3) 0 % (0-3) Neutrophils # (Auto) 10.7 x10^3/uL (1.8-7.7) 7.9 x10^3/uL (1.8-7.7) Lymphocytes # (Auto) 1.1 x10^3/uL (1.0-4.8) 1.9 x10^3/uL (1.0-4.8) Monocytes # (Auto) 0.8 x10^3/uL (0.0-1.1) 0.7 x10^3/uL (0.0-1.1) Eosinophils # (Auto) 0.0 x10^3/uL (0.0-0.7) 0.1 x10^3/uL (0.0-0.7) Basophils # (Auto) 0.0 x10^3/uL (0.0-0.2) 0.0 x10^3/uL (0.0-0.2) Sodium Level 134 mmol/L (136-145) 138 mmol/L (136-145) Potassium Level 3.8 mmol/L (3.5-5.1) 3.6 mmol/L (3.5-5.1) Chloride Level 97 mmol/L (98-107) 103 mmol/L (98-107) Carbon Dioxide Level 25 mmol/L (21-32) 26 mmol/L (21-32) Anion Gap 12 (6-14) 9 (6-14) Blood Urea Nitrogen 82 mg/dL (7-20) 69 mg/dL (7-20) Creatinine 1.9 mg/dL (0.6-1.0) 1.5 mg/dL (0.6-1.0) Estimated GFR (Cockcroft-Gault) 25.9 34.0 BUN/Creatinine Ratio 43 (6-20) Glucose Level 194 mg/dL (70-99) 113 mg/dL (70-99) Calcium Level 9.0 mg/dL (8.5-10.1) 8.8 mg/dL (8.5-10.1) Magnesium Level 1.6 mg/dL (1.8-2.4) Total Bilirubin 0.2 mg/dL (0.2-1.0) Aspartate Amino Transf (AST/SGOT) 11 U/L (15-37) Alanine Aminotransferase (ALT/SGPT) 14 U/L (14-59) Alkaline Phosphatase 71 U/L (46-116) Total Protein 6.9 g/dL (6.4-8.2) Albumin 2.5 g/dL (3.4-5.0) Albumin/Globulin Ratio 0.6 (1.0-1.7) Acetaminophen Level < 2 mcg/ml (10-30) Acetaminophen Last Dose Date Acetaminophen Last Dose Time Prothrombin Time 14.0 SEC (11.7-14.0) Prothromb Time International Ratio 1.1 (0.8-1.1) Activated Partial Thromboplast Time 36 SEC (24-38) Gastric Fluid Occult Blood Positive (NEG) Absolute Reticulocyte Count 0.038 x10^6/uL (0.020-0.120) Percent Reticulocyte Count 1.5 % (0.5-2.3) Immature Reticulocyte Fraction 0.51 (0.20-0.60) Test 01/26/21 10:05 01/26/21 10:30 SARS-CoV-2 Antigen (Rapid) Negative (NEGATIVE) Iron Level 41 ug/dL (50-170) Total Iron Binding Capacity 219 ug/dL (250-450) Iron Saturation 19 % (15-34) Vitamin B12 Level 206 pg/mL (247-911) Assessment/Plan Assessment/Plan Diffused the left midfoot edema 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 In the setting of current GI status and hemoptysis, mild leukocytosis, I am concerned with possible septic joint associated with hematogenous spread. Prior oral antibiotic therapy did help with the swelling and symptoms. Charcot arthritis could also be a differential but patient is not diabetic or neuropathic. Tendons were preserved without any deficit concerning for pyogenic tenosynovitis. -Pending ESR, CRP, blood culture x2, WBC for infectious work-up -Pending left midfoot MRI without contrast to further investigate the joint pathology and tendon -We will consider possible joint tap for Gram stain, culture -May consider empiric antibiotic therapy? If the inflammatory/infectious markers returned positive -In the meantime, limit weightbearing activity to left lower extremity -Monitor for signs of infection -I will continue following the patient and discuss the MRI results JEREMIAH PRATT DPM Jan 26, 2021 17:46
[2021-01-27 03:00] VITALS: BP 124/59
--- NOTE | 2021-01-27 06:35 | PDOC ---
[employer] PROGRESS NOTE Date of Service DOS: DATE: 01/27/21 TIME: 06:30 Chief Complaint Chief Complaint Hematemesis - with acute blood loss anemia. GI consulted. Protonix GTT. Monitor serial H&H. Type and screen Intractable left foot pain - will repeat imaging, consult podiatry for further treatment of midfoot arthritis YARED - likely vasomotor nephropathy from vomiting in the setting of taking diuretics. Hydrate HTN - hold DAQUAN/HCTZ for YARED. hold asa for UGIB Leukocytosis - likely reactive with UGIB. will trend Hyponatremia - likely hypovolemic, will trend after hydration HLD - hold statin while NPO CAD s/p stenting - remote history, hold ASA for GI bleed FEN - NPO PPX - SCDs, PPI FULL CODE Dispo - inpatient for above History of Present Illness History of Present Illness Ms Harper is a 75 year old female w/ PMHx HTN, CAD with SERGE x1, HLD, anxiety who present to ER for evaluation of vomiting blood 01/25/21 in the morning. Patient vomited one time, she noted blood in her vomitus. Her brought it in and there was > 500cc red gelatinous material. Patient is only on a baby aspirin a day, has been instructed by her primary care physician not to take ibuprofen to avoid renal side effects. She does have epigastric abdominal pain with associated nausea, denies any constipation or diarrhea and no blood in the stool, but has had dark tarry stools over the past 24 hours. Patient just had one episode of vomiting blood in the morning. Patient denies any headache. Patient was diagnosed with cellulitis of her left foot on January 17, 2021 and possible left bakers cyst. Patient was put on doxycycline 100 mg twice a day and topical voltaren with some improvement. Since then over the past 2 days she has had more severe pain in the dorsum of her left foot and today is unable to bear weight on it. WBC 12.7, Hb 8.4, platelets 545, NA 134, K3.8, BUN 82, CR 1.9, glucose 194, calcium 9, mag 1.6, bilirubin 0.2, AST 11, ALT 14, albumin 2.5, acetaminophen level undetectable, gastric occult positive. Acute abdominal series with no obstruction no acute abnormalities. 01/27: Afebrile. COVID-19 test positive, but asymptomatic and breathing on room air. She is scheduled to have a EGD today, but not sure at this time how this COVID-19 diagnosis will affect these plans. Seen by podiatry for left foot karma gibson; due to some concern for possible septic joint I believe podiatry is planning possible joint tap pending CRP and sed rate. She does note improved swelling and pain in this foot. Vitals/I&O Vitals/I&O: Vital Signs Date Time Temp Pulse Resp B/P (MAP) Pulse Ox O2 Delivery O2 Flow Rate FiO2 01/27/21 03:00 98.8 71 124/59 (80) 95 Room Air 98.8 01/26/21 23:00 17 I & O 01/26/21 01/26/21 01/27/21 15:00 23:00 07:00 Intake Total 1204.79 ml 0 ml Balance 1204.79 ml 0 ml Physical Exam General: Alert, Oriented X3, Cooperative, No acute distress Heart: Regular rate Lungs: Clear Abdomen: Normal bowel sounds, Soft, No hepatosplenomegaly, No masses, Other (epigastric tenderness) Extremities: No clubbing, No cyanosis, Normal pulses, Other (tender swollen dorsum of left foot. No erythema) Skin: No rashes, No breakdown, No significant lesion Labs Labs: Laboratory Tests Test 01/26/21 06:45 01/26/21 10:05 01/26/21 10:30 White Blood Count 10.5 x10^3/uL (4.0-11.0) Red Blood Count 2.48 x10^6/uL (3.50-5.70) Hemoglobin 7.2 g/dL (12.0-15.5) Hematocrit 21.1 % (36.0-47.0) Mean Corpuscular Volume 85 fL (79-100) Mean Corpuscular Hemoglobin 29 pg (25-35) Mean Corpuscular Hemoglobin Concent 34 g/dL (31-37) Red Cell Distribution Width 14.0 % (11.5-14.5) Platelet Count 505 x10^3/uL (140-400) Neutrophils (%) (Auto) 75 % (31-73) Lymphocytes (%) (Auto) 18 % (24-48) Monocytes (%) (Auto) 7 % (0-9) Eosinophils (%) (Auto) 1 % (0-3) Basophils (%) (Auto) 0 % (0-3) Neutrophils # (Auto) 7.9 x10^3/uL (1.8-7.7) Lymphocytes # (Auto) 1.9 x10^3/uL (1.0-4.8) Monocytes # (Auto) 0.7 x10^3/uL (0.0-1.1) Eosinophils # (Auto) 0.1 x10^3/uL (0.0-0.7) Basophils # (Auto) 0.0 x10^3/uL (0.0-0.2) Absolute Reticulocyte Count 0.038 x10^6/uL (0.020-0.120) Percent Reticulocyte Count 1.5 % (0.5-2.3) Immature Reticulocyte Fraction 0.51 (0.20-0.60) Sodium Level 138 mmol/L (136-145) Potassium Level 3.6 mmol/L (3.5-5.1) Chloride Level 103 mmol/L (98-107) Carbon Dioxide Level 26 mmol/L (21-32) Anion Gap 9 (6-14) Blood Urea Nitrogen 69 mg/dL (7-20) Creatinine 1.5 mg/dL (0.6-1.0) Estimated GFR (Cockcroft-Gault) 34.0 Glucose Level 113 mg/dL (70-99) Calcium Level 8.8 mg/dL (8.5-10.1) SARS-CoV-2 Antigen (Rapid) Negative (NEGATIVE) Iron Level 41 ug/dL (50-170) Total Iron Binding Capacity 219 ug/dL (250-450) Iron Saturation 19 % (15-34) Vitamin B12 Level 206 pg/mL (247-911) Assessment and Plan Assessmemt and Plan Problems Medical Problems: (1) Hematemesis Status: Acute Comment Review of Relevant I have reviewed the following items lynn (where applicable) has been applied. Medications: Current Medications Medications (Trade) Dose Ordered Sig/Ajay Route PRN Reason Start Time Stop Time Status Last Admin Dose Admin Diclofenac Sodium (Voltaren) 1 sammie BID TP 01/26/21 10:00 01/26/21 21:33 Magnesium Sulfate/ Dextrose 100 ml @ 100 mls/hr 1X ONCE IV 01/26/21 10:00 01/26/21 10:59 DC 01/26/21 09:54 Pantoprazole Sodium (PROTONIX VIAL for IV PUSH) 40 mg BIDAC IVP 01/26/21 16:30 01/26/21 15:59 Cyanocobalamin (Vitamin B-12 Inj) 1,000 mcg DAILY IM 01/26/21 13:00 01/26/21 12:38 Justifications for Admission Abdominal Pain Indications Is NPO status required?: Yes Justification for admission: Patient may require to be NPO for greater 24hours making it medically necessary to manage patient as inpatient. Other Justification KESHA OZUNA MD Jan 27, 2021 06:35
[2021-01-27 07:00] VITALS: BP 141/63
[2021-01-27] MEDS ORDERED: IV RINGERS,LACTATED 1000ML 1,000 ML IV SCH (07:00)
[2021-01-27 08:06] LABS: BASO % 0 % (0-3); EOS # 0.1 x10^3/uL (0.0-0.7); EOS % 1 % (0-3); HEMATOCRIT 24.4 % (36.0-47.0); HEMOGLOBIN 8.3 g/dL (12.0-15.5); LYMPH # 1.3 x10^3/uL (1.0-4.8); LYMPH % 15 % (24-48); MEAN CORPUSCULAR HEMOGLOBIN 30 pg (25-35); MEAN CORPUSCULAR HGB CONC 34 g/dL (31-37); MEAN CORPUSCULAR VOLUME 86 fL (79-100); MONO # 0.6 x10^3/uL (0.0-1.1); MONO % 7 % (0-9); NEUT # 6.9 x10^3/uL (1.8-7.7); NEUT % 76 % (31-73); PLATELET COUNT 526 x10^3/uL (140-400); RED BLOOD COUNT 2.83 x10^6/uL (3.50-5.40); RED CELL DISTRIBUTION WIDTH 14.5 % (11.5-14.5); WHITE BLOOD COUNT 9.1 x10^3/uL (4.0-11.0)
[2021-01-27] MEDS: PANTOPRAZOLE IV PUSH 40 MG VIAL. IVP SCH (08:15)
[2021-01-27 08:44] LABS: C-REACTIVE PROTEIN 56.1 mg/L (0-3.3); CALCIUM 8.7 mg/dL (8.5-10.1); CREATININE 1.5 mg/dL (0.6-1.0); POTASSIUM 3.5 mmol/L (3.5-5.1)
[2021-01-27] MEDS: DICLOFENAC SODIUM 1% TOPICAL GEL 100GM TUBE. TP SCH ×2 (09:21→21:00)
[2021-01-27] MEDS: CYANOCOBALAMIN (VITAMIN B-12) 1,000 MCG/ML VIAL. IM SCH (09:21)
[2021-01-27 11:00] VITALS: BP 110/40
--- NOTE | 2021-01-27 11:51 | PDOC ---
Date of Service: DATE: 01/27/21 TIME: 11:47 Objective: Objective: D/w nurse - no bleeding, vomiting, or stools. Vital Signs: Vital Signs Date Time Temp Pulse Resp B/P (MAP) Pulse Ox O2 Delivery O2 Flow Rate FiO2 01/27/21 08:19 Room Air 01/27/21 07:00 98.4 79 141/63 (89) 93 98.4 01/26/21 23:00 17 Labs: Laboratory Tests Test 01/27/21 07:15 White Blood Count 9.1 x10^3/uL Red Blood Count 2.83 x10^6/uL Hemoglobin 8.3 g/dL Hematocrit 24.4 % Mean Corpuscular Volume 86 fL Mean Corpuscular Hemoglobin 30 pg Mean Corpuscular Hemoglobin Concent 34 g/dL Red Cell Distribution Width 14.5 % Platelet Count 526 x10^3/uL Neutrophils (%) (Auto) 76 % Lymphocytes (%) (Auto) 15 % Monocytes (%) (Auto) 7 % Eosinophils (%) (Auto) 1 % Basophils (%) (Auto) 0 % Neutrophils # (Auto) 6.9 x10^3/uL Lymphocytes # (Auto) 1.3 x10^3/uL Monocytes # (Auto) 0.6 x10^3/uL Eosinophils # (Auto) 0.1 x10^3/uL Basophils # (Auto) 0.0 x10^3/uL Erythrocyte Sedimentation Rate 118 Sodium Level 137 mmol/L Potassium Level 3.5 mmol/L Chloride Level 103 mmol/L Carbon Dioxide Level 27 mmol/L Anion Gap 7 Blood Urea Nitrogen 39 mg/dL Creatinine 1.5 mg/dL Estimated GFR (Cockcroft-Gault) 34.0 Glucose Level 118 mg/dL Calcium Level 8.7 mg/dL C-Reactive Protein, Quantitative 56.1 mg/L PE: GEN: exam deferred - in COVID isolation A/P: COVID+ ?hematemesis/melena - no recurrence Anemia - improved w/ transfusion - parameters c/w chronic illness anemia and B12 deficiency - started on replacement -- EGD on hold w/ COVID. Will plan to pursue as outpt w/ colonoscopy. Continue PPI and B12. Advance diet. D/w nurse and GI lab. Will return later to speak w/ pt. Justicifation of Admission Dx: Justifications for Admission: Justification of Admission Dx: Yes PRETTY RO Jan 27, 2021 11:51
--- NOTE | 2021-01-27 13:43 | PDOC ---
PROGRESS NOTES Date of Service DATE: 01/27/21 TIME: 13:23 Subjective Subjective Patient relates moderate improvement on the left foot swelling and pain with Valteran gel. At rest, it is 4 out of 10 throbbing achy in nature circumferential to the midfoot. She has been walking in the room without any severe pain, progressive deformity, swelling or redness. She continues to deny any constitutional symptoms. Per chart review, both ESR and CRP were elevated, 118, 56.1 respectively. The WBC from January 26 was 9.1. COVID screen returned positive. Objective Objective Vital Signs Date Time Temp Pulse Resp B/P (MAP) Pulse Ox O2 Delivery O2 Flow Rate FiO2 01/27/21 11:00 98.5 78 110/40 (63) 93 Room Air 98.5 01/26/21 23:00 17 Intake and Output 01/27/21 07:00 Intake Total 1629.79 ml Balance 1629.79 ml Intake Oral 0 ml IV Total 1204.79 ml Blood Product IV Normal Saline Flush 425 ml # Voids 4 Physical Exam Physical Exam Left lower extremity exam: VASC: - 2/4 DP/PT pulses palpable - Capillary refill time less then 5 sec - [+] Mild to Moderate non-pitting edema noted circumferentially to Lisfranc joint especially the dorsal lateral aspect but overall circumferential - [+] minimal to no erythema overlying the dorsal lateral Lisfranc joint DERM: - [-] open wounds/lesions, fluctuance, proximal streaking - [-] ecchymosis or fx blisters NEURO: - Sensation intact via light touch MUSC: - [+] moderate TTP circumferentially at Lisfranc joint especially at the dorsal lateral aspect - [-] Piano morales test or inversion/eversion stress test across the Lisfranc - [-] TTP across the ankle joint with passive ROM and axial compression - [-] Crepitus or catching with passive ankle joint or Lisfranc joint ROM - [+] Mild TTP to the NCJ medially and plantarly - [+] TTP at tibialis anterior insertion site and PT tendon insertion site medially and plantarly without tendon strength deficit - 5/5 muscle strength across the ankle joint - Reduced ankle joint dorsiflexion with knee extended, improves with knee flexed - [-] TTP at peroneal tendons, Achilles tendon, PT tendon Assessment Assessment Problems Medical Problems: (1) Hematemesis Status: Acute Plan Plan of Care -Although ESR and CRP are sensitive, they are nonspecific. Given the spontaneous improvment of midfoot pain, swelling, redness without abx, the index of suspicion for septic joint is lowered -Bedside ultrasound exam remarked mild joint distention across the Lisfranc joint with underlying osseous osteophytes without fragmentation, typical osteolytic changes suggesting bacterial infection or Charcot arthropathy. The tibialis anterior tendon and tibialis posterior tendon are relatively intact without significant structural insufficiency or peritenon inflammation concerning for pyogenic tenosynovitis. -I explained to patient about the utility of midfoot joint tap. Patient was apprehensive about the pain and therefore refused the procedure at bedside. Given the lack of infectious progression or clinical remarks, I think is reasonable to hold off the joint tap for now especially after the unremarkable ultrasound study -Pending blood cx -Antibiotic therapy is not indicated at this time -Nonweightbearing to left lower extremity Disposition: If the blood culture returns negative, I will see her as an outpatient with an MRI. Our office will call her for appointment date and time Comment Review of Relevant I have reviewed the following items lynn (where applicable) has been applied. Labs Laboratory Tests Test 01/25/21 17:37 01/25/21 18:09 01/25/21 19:00 01/26/21 06:45 White Blood Count 12.7 x10^3/uL (4.0-11.0) 10.5 x10^3/uL (4.0-11.0) Red Blood Count 2.90 x10^6/uL (3.50-5.40) 2.48 x10^6/uL (3.50-5.70) Hemoglobin 8.4 g/dL (12.0-15.5) 7.2 g/dL (12.0-15.5) Hematocrit 24.6 % (36.0-47.0) 21.1 % (36.0-47.0) Mean Corpuscular Volume 85 fL (79-100) 85 fL (79-100) Mean Corpuscular Hemoglobin 29 pg (25-35) 29 pg (25-35) Mean Corpuscular Hemoglobin Concent 34 g/dL (31-37) 34 g/dL (31-37) Red Cell Distribution Width 13.7 % (11.5-14.5) 14.0 % (11.5-14.5) Platelet Count 545 x10^3/uL (140-400) 505 x10^3/uL (140-400) Neutrophils (%) (Auto) 85 % (31-73) 75 % (31-73) Lymphocytes (%) (Auto) 9 % (24-48) 18 % (24-48) Monocytes (%) (Auto) 7 % (0-9) 7 % (0-9) Eosinophils (%) (Auto) 0 % (0-3) 1 % (0-3) Basophils (%) (Auto) 0 % (0-3) 0 % (0-3) Neutrophils # (Auto) 10.7 x10^3/uL (1.8-7.7) 7.9 x10^3/uL (1.8-7.7) Lymphocytes # (Auto) 1.1 x10^3/uL (1.0-4.8) 1.9 x10^3/uL (1.0-4.8) Monocytes # (Auto) 0.8 x10^3/uL (0.0-1.1) 0.7 x10^3/uL (0.0-1.1) Eosinophils # (Auto) 0.0 x10^3/uL (0.0-0.7) 0.1 x10^3/uL (0.0-0.7) Basophils # (Auto) 0.0 x10^3/uL (0.0-0.2) 0.0 x10^3/uL (0.0-0.2) Sodium Level 134 mmol/L (136-145) 138 mmol/L (136-145) Potassium Level 3.8 mmol/L (3.5-5.1) 3.6 mmol/L (3.5-5.1) Chloride Level 97 mmol/L (98-107) 103 mmol/L (98-107) Carbon Dioxide Level 25 mmol/L (21-32) 26 mmol/L (21-32) Anion Gap 12 (6-14) 9 (6-14) Blood Urea Nitrogen 82 mg/dL (7-20) 69 mg/dL (7-20) Creatinine 1.9 mg/dL (0.6-1.0) 1.5 mg/dL (0.6-1.0) Estimated GFR (Cockcroft-Gault) 25.9 34.0 BUN/Creatinine Ratio 43 (6-20) Glucose Level 194 mg/dL (70-99) 113 mg/dL (70-99) Calcium Level 9.0 mg/dL (8.5-10.1) 8.8 mg/dL (8.5-10.1) Magnesium Level 1.6 mg/dL (1.8-2.4) Total Bilirubin 0.2 mg/dL (0.2-1.0) Aspartate Amino Transf (AST/SGOT) 11 U/L (15-37) Alanine Aminotransferase (ALT/SGPT) 14 U/L (14-59) Alkaline Phosphatase 71 U/L (46-116) Total Protein 6.9 g/dL (6.4-8.2) Albumin 2.5 g/dL (3.4-5.0) Albumin/Globulin Ratio 0.6 (1.0-1.7) Acetaminophen Level < 2 mcg/ml (10-30) Acetaminophen Last Dose Date Acetaminophen Last Dose Time Prothrombin Time 14.0 SEC (11.7-14.0) Prothromb Time International Ratio 1.1 (0.8-1.1) Activated Partial Thromboplast Time 36 SEC (24-38) Gastric Fluid Occult Blood Positive (NEG) Absolute Reticulocyte Count 0.038 x10^6/uL (0.020-0.120) Percent Reticulocyte Count 1.5 % (0.5-2.3) Immature Reticulocyte Fraction 0.51 (0.20-0.60) Test 01/26/21 10:05 01/26/21 10:30 01/27/21 07:15 SARS-CoV-2 RNA (LANETTE) Positive (Negative) SARS-CoV-2 Antigen (Rapid) Negative (NEGATIVE) Iron Level 41 ug/dL (50-170) Total Iron Binding Capacity 219 ug/dL (250-450) Iron Saturation 19 % (15-34) Vitamin B12 Level 206 pg/mL (247-911) White Blood Count 9.1 x10^3/uL (4.0-11.0) Red Blood Count 2.83 x10^6/uL (3.50-5.40) Hemoglobin 8.3 g/dL (12.0-15.5) Hematocrit 24.4 % (36.0-47.0) Mean Corpuscular Volume 86 fL (79-100) Mean Corpuscular Hemoglobin 30 pg (25-35) Mean Corpuscular Hemoglobin Concent 34 g/dL (31-37) Red Cell Distribution Width 14.5 % (11.5-14.5) Platelet Count 526 x10^3/uL (140-400) Neutrophils (%) (Auto) 76 % (31-73) Lymphocytes (%) (Auto) 15 % (24-48) Monocytes (%) (Auto) 7 % (0-9) Eosinophils (%) (Auto) 1 % (0-3) Basophils (%) (Auto) 0 % (0-3) Neutrophils # (Auto) 6.9 x10^3/uL (1.8-7.7) Lymphocytes # (Auto) 1.3 x10^3/uL (1.0-4.8) Monocytes # (Auto) 0.6 x10^3/uL (0.0-1.1) Eosinophils # (Auto) 0.1 x10^3/uL (0.0-0.7) Basophils # (Auto) 0.0 x10^3/uL (0.0-0.2) Erythrocyte Sedimentation Rate 118 (0-25) Sodium Level 137 mmol/L (136-145) Potassium Level 3.5 mmol/L (3.5-5.1) Chloride Level 103 mmol/L (98-107) Carbon Dioxide Level 27 mmol/L (21-32) Anion Gap 7 (6-14) Blood Urea Nitrogen 39 mg/dL (7-20) Creatinine 1.5 mg/dL (0.6-1.0) Estimated GFR (Cockcroft-Gault) 34.0 Glucose Level 118 mg/dL (70-99) Calcium Level 8.7 mg/dL (8.5-10.1) C-Reactive Protein, Quantitative 56.1 mg/L (0-3.3) Laboratory Tests Test 01/27/21 07:15 White Blood Count 9.1 x10^3/uL (4.0-11.0) Red Blood Count 2.83 x10^6/uL (3.50-5.40) Hemoglobin 8.3 g/dL (12.0-15.5) Hematocrit 24.4 % (36.0-47.0) Mean Corpuscular Volume 86 fL (79-100) Mean Corpuscular Hemoglobin 30 pg (25-35) Mean Corpuscular Hemoglobin Concent 34 g/dL (31-37) Red Cell Distribution Width 14.5 % (11.5-14.5) Platelet Count 526 x10^3/uL (140-400) Neutrophils (%) (Auto) 76 % (31-73) Lymphocytes (%) (Auto) 15 % (24-48) Monocytes (%) (Auto) 7 % (0-9) Eosinophils (%) (Auto) 1 % (0-3) Basophils (%) (Auto) 0 % (0-3) Neutrophils # (Auto) 6.9 x10^3/uL (1.8-7.7) Lymphocytes # (Auto) 1.3 x10^3/uL (1.0-4.8) Monocytes # (Auto) 0.6 x10^3/uL (0.0-1.1) Eosinophils # (Auto) 0.1 x10^3/uL (0.0-0.7) Basophils # (Auto) 0.0 x10^3/uL (0.0-0.2) Erythrocyte Sedimentation Rate 118 (0-25) Sodium Level 137 mmol/L (136-145) Potassium Level 3.5 mmol/L (3.5-5.1) Chloride Level 103 mmol/L (98-107) Carbon Dioxide Level 27 mmol/L (21-32) Anion Gap 7 (6-14) Blood Urea Nitrogen 39 mg/dL (7-20) Creatinine 1.5 mg/dL (0.6-1.0) Estimated GFR (Cockcroft-Gault) 34.0 Glucose Level 118 mg/dL (70-99) Calcium Level 8.7 mg/dL (8.5-10.1) C-Reactive Protein, Quantitative 56.1 mg/L (0-3.3) Medications Current Medications Pantoprazole Sodium (PROTONIX VIAL for IV PUSH) 80 mg 1X ONCE IVP Last administered on 01/25/21at 20:32; Start 01/25/21 at 19:30; Stop 01/25/21 at 19:31; Status DC Pantoprazole Sodium 80 mg/ Sodium Chloride 100 ml @ 10 mls/hr Q10H IV Last administered on 01/26/21at 08:48; Start 01/25/21 at 20:00; Stop 01/26/21 at 09:29; Status DC Morphine Sulfate (Morphine Sulfate) 1 mg PRN Q1HR PRN IV PAIN Last administered on 01/26/21at 05:54; Start 01/25/21 at 19:30 Bisacodyl (Dulcolax Supp) 10 mg PRN DAILY PRN [place] CONSTIPATION; Start 01/25/21 at 19:30 Sodium Chloride 1,000 ml @ 125 mls/hr 1X ONCE IV Last administered on 01/25/21at 21:08; Start 01/25/21 at 19:30; Stop 01/26/21 at 03:29; Status DC Influenza Virus Vaccine Quadrival (Flulaval Quad [id number] Syringe) 0.5 ml ONCE ONCE VAX IM ; Start 01/26/21 at 09:00; Stop 01/26/21 at 09:01; Status DC Acetaminophen (Tylenol Supp) 650 mg PRN Q6HRS PRN [place] MILD PAIN / TEMP > 100.3'F; Start 01/26/21 at 07:15 Fentanyl Citrate (Fentanyl 2ml Vial) 25 mcg PRN Q3HRS PRN IVP SEVERE PAIN 7-10; Start 01/26/21 at 09:00 Diclofenac Sodium (Voltaren) 1 sammie BID TP Last administered on 01/27/21at 09:21; Start 01/26/21 at 10:00 Magnesium Sulfate/ Dextrose 100 ml @ 100 mls/hr 1X ONCE IV Last administered on 01/26/21at 09:54; Start 01/26/21 at 10:00; Stop 01/26/21 at 10:59; Status DC Pantoprazole Sodium (PROTONIX VIAL for IV PUSH) 40 mg BIDAC IVP Last administered on 01/27/21at 08:15; Start 01/26/21 at 16:30; Stop 01/27/21 at 11:52; Status DC Cyanocobalamin (Vitamin B-12 Inj) 1,000 mcg DAILY IM Last administered on 01/27/21at 09:21; Start 01/26/21 at 13:00 Ringer's Solution 1,000 ml @ 50 mls/hr Q20H IV ; Start 01/27/21 at 07:00; Stop 01/27/21 at 18:59 Pantoprazole Sodium (Protonix) 40 mg DAILYAC PO ; Start 01/28/21 at 07:30 Active Scripts Active Reported Atorvastatin Calcium 40 Mg Tablet 40 Mg PO DAILY Lisinopril-Hctz 10-12.5 Mg Tab (Lisinopril/Hydrochlorothiazide) 1 Each Tablet 1 Tab PO DAILY Aspirin 81 Mg Tab.chew 81 Mg PO DAILY Vitals/I & O Vital Sign - Last 24 Hours 01/26/21 01/26/21 01/26/21 01/26/21 15:00 17:36 18:36 19:00 Temp 98.1 98.2 97.9 97.9 98.1 98.2 97.9 97.9 Pulse 80 81 81 81 Resp 18 20 20 17 B/P (MAP) 124/64 (84) 124/65 132/66 95/67 (76) Pulse Ox 95 95 O2 Delivery Room Air Room Air 01/26/21 01/26/21 01/27/21 01/27/21 19:55 23:00 03:00 07:00 Temp 97.9 98.4 98.8 98.4 97.9 98.4 98.8 98.4 Pulse 81 83 71 79 Resp 17 17 B/P (MAP) 95/67 123/69 (87) 124/59 (80) 141/63 (89) Pulse Ox 96 95 93 O2 Delivery Room Air Room Air Room Air 01/27/21 01/27/21 08:19 11:00 Temp 98.5 98.5 Pulse 78 B/P (MAP) 110/40 (63) Pulse Ox 93 O2 Delivery Room Air Room Air Intake and Output 01/26/21 01/26/21 01/27/21 15:00 23:00 07:00 Intake Total 1204.79 ml 425 ml 0 ml Balance 1204.79 ml 425 ml 0 ml Justifications for Admission Abdominal Pain Indications Is NPO status required?: Yes Justification for admission: Patient may require to be NPO for greater 24hours making it medically necessary to manage patient as inpatient. Other Justification JEREMIAH PRATT DPM Jan 27, 2021 13:43
[2021-01-27 15:00] VITALS: BP 119/48
--- NOTE | 2021-01-27 15:34 | NUR ---
SS following up with discharge planning. SS reviewed pt chart and discussed with pt RN. Pt is currently on room air. COVID19 positive on PCR. GI and Ortho following. EGD on hold due to positive COVID19 test. SS will continue to follow for discharge planning.
[2021-01-27 19:00] VITALS: BP 114/53
[2021-01-27 23:00] VITALS: BP 103/44
[2021-01-28 03:00] VITALS: BP 97/45
[2021-01-28 07:00] VITALS: BP 129/60
[2021-01-28] MEDS ORDERED: PANTOPRAZOLE 40 MG TABLET.DR. PO SCH (07:30)
[2021-01-28 08:07] LABS: HEMATOCRIT 22.3 % (36.0-47.0); HEMOGLOBIN 7.7 g/dL (12.0-15.5); RED BLOOD COUNT 2.6 x10^6/uL (3.50-5.40); RED CELL DISTRIBUTION WIDTH 14.2 % (11.5-14.5); WHITE BLOOD COUNT 8.4 x10^3/uL (4.0-11.0)
[2021-01-28 08:33] LABS: CALCIUM 8.6 mg/dL (8.5-10.1); CREATININE 1.4 mg/dL (0.6-1.0); GFR 36.9; POTASSIUM 3.6 mmol/L (3.5-5.1)
[2021-01-28] MEDS: DICLOFENAC SODIUM 1% TOPICAL GEL 100GM TUBE. TP SCH (09:00)
[2021-01-28] MEDS: CYANOCOBALAMIN (VITAMIN B-12) 1,000 MCG/ML VIAL. IM SCH (09:00)
[2021-01-28 11:00] VITALS: BP 123/70
--- NOTE | 2021-01-28 11:46 | NUR ---
SW following. Discussed with RN, pt from home with , room air, GI soft, COVID-19 positive. MRI ordered. RN advised no SW needs at this time. SW will continue to follow.
--- NOTE | 2021-01-28 12:30 | PDOC ---
Date of Service: DATE: 01/28/21 TIME: 12:28 Subjective: Subjective: Feeling better. Tolerating diet, no n/v or bleeding. Has some questions about her foot. Objective: Objective: Reviewed chart - ?LE MRI as outpt Vital Signs: Vital Signs Date Time Temp Pulse Resp B/P (MAP) Pulse Ox O2 Delivery O2 Flow Rate FiO2 01/28/21 11:00 98.2 78 17 123/70 (87) 98 Room Air 98.2 Labs: Laboratory Tests Test 01/28/21 07:40 White Blood Count 8.4 x10^3/uL Red Blood Count 2.60 x10^6/uL Hemoglobin 7.7 g/dL Hematocrit 22.3 % Mean Corpuscular Volume 86 fL Mean Corpuscular Hemoglobin 30 pg Mean Corpuscular Hemoglobin Concent 35 g/dL Red Cell Distribution Width 14.2 % Platelet Count 529 x10^3/uL Sodium Level 138 mmol/L Potassium Level 3.6 mmol/L Chloride Level 102 mmol/L Carbon Dioxide Level 28 mmol/L Anion Gap 8 Blood Urea Nitrogen 32 mg/dL Creatinine 1.4 mg/dL Estimated GFR (Cockcroft-Gault) 36.9 Glucose Level 113 mg/dL Calcium Level 8.6 mg/dL PE: GEN: NAD LUNGS: CTAB HEART: RRR ABD: non-distended NEURO/PSYCH: A & O 3 A/P: COVID+ ?hematemesis/melena - resolved ACD, B12 deficiency -- DC per primary on PPI and B12. EGD and colonoscopy as outpt - our office will arrange. Justicifation of Admission Dx: Justifications for Admission: Justification of Admission Dx: Yes PRETTY RO Jan 28, 2021 12:30
--- NOTE | 2021-01-28 14:23 | PDOC ---
[employer] PROGRESS NOTE Date of Service DOS: DATE: 01/28/21 TIME: 14:19 Chief Complaint Chief Complaint Hematemesis - with acute blood loss anemia. GI consulted. Protonix GTT. Monitor serial H&H. Type and screen Intractable left foot pain - will repeat imaging, consult podiatry for further treatment of midfoot arthritis YARED - likely vasomotor nephropathy from vomiting in the setting of taking diuretics. Hydrate HTN - hold DAQUAN/HCTZ for YARED. hold asa for UGIB Leukocytosis - likely reactive with UGIB. will trend Hyponatremia - likely hypovolemic, will trend after hydration HLD - hold statin while NPO CAD s/p stenting - remote history, hold ASA for GI bleed FEN - NPO PPX - SCDs, PPI FULL CODE Dispo - inpatient for above History of Present Illness History of Present Illness Ms Harper is a 75 year old female w/ PMHx HTN, CAD with SERGE x1, HLD, anxiety who present to ER for evaluation of vomiting blood 01/25/21 in the morning. Patient vomited one time, she noted blood in her vomitus. Her brought it in and there was > 500cc red gelatinous material. Patient is only on a baby aspirin a day, has been instructed by her primary care physician not to take ibuprofen to avoid renal side effects. She does have epigastric abdominal pain with associated nausea, denies any constipation or diarrhea and no blood in the stool, but has had dark tarry stools over the past 24 hours. Patient just had one episode of vomiting blood in the morning. Patient denies any headache. Patient was diagnosed with cellulitis of her left foot on January 17, 2021 and possible left bakers cyst. Patient was put on doxycycline 100 mg twice a day and topical voltaren with some improvement. Since then over the past 2 days she has had more severe pain in the dorsum of her left foot and today is unable to bear weight on it. WBC 12.7, Hb 8.4, platelets 545, NA 134, K3.8, BUN 82, CR 1.9, glucose 194, calcium 9, mag 1.6, bilirubin 0.2, AST 11, ALT 14, albumin 2.5, acetaminophen level undetectable, gastric occult positive. Acute abdominal series with no obstruction no acute abnormalities. 01/27: Afebrile. COVID-19 test positive, but asymptomatic and breathing on room air. She is scheduled to have a EGD today, but not sure at this time how this COVID-19 diagnosis will affect these plans. Seen by podiatry for left foot karma gibson; due to some concern for possible septic joint I believe podiatry is planning possible joint tap pending CRP and sed rate. She does note improved swelling and pain in this foot. 01/28: Hemoglobin stable, 7.7 today. Per GI, follow-up as outpatient for EGD and colonoscopy; continue PPI. She deferred joint tap of her foot yesterday. Discussed with Dr. Hammond, given relatively low inflammatory markers we have low concern for septic joint. Blood cultures with no growth to date. We did discuss possibility of MRI, but this would be difficult inpatient. Would be more prudent to pursue MRI in clinic with Dr. Hammond; discussed this with patient. She has rolling walker to ambulate upon discharge. Will prescribe Protonix upon discharge and tramadol for pain. COVID-19 positive, but fully vaccinated. Recommend patient to self isolate 10 days from diagnosis (until 02/06/2021), at which time if she is still asymptomatic she could consider herself recovered. Greater than 30 minutes spent managing discharge this patient. Vitals/I&O Vitals/I&O: Vital Signs Date Time Temp Pulse Resp B/P (MAP) Pulse Ox O2 Delivery O2 Flow Rate FiO2 01/28/21 11:00 98.2 78 17 123/70 (87) 98 Room Air 98.2 I & O 01/27/21 01/27/21 01/28/21 15:00 23:00 07:00 Intake Total 240 ml 1100 ml Balance 240 ml 1100 ml Physical Exam General: Alert, Oriented X3, Cooperative, No acute distress Heart: Regular rate Lungs: Clear Abdomen: Normal bowel sounds, Soft, No hepatosplenomegaly, No masses, Other (epigastric tenderness) Extremities: No clubbing, No cyanosis, Normal pulses, Other (tender swollen dorsum of left foot. No erythema) Skin: No rashes, No breakdown, No significant lesion Labs Labs: Laboratory Tests Test 01/28/21 07:40 White Blood Count 8.4 x10^3/uL (4.0-11.0) Red Blood Count 2.60 x10^6/uL (3.50-5.40) Hemoglobin 7.7 g/dL (12.0-15.5) Hematocrit 22.3 % (36.0-47.0) Mean Corpuscular Volume 86 fL (79-100) Mean Corpuscular Hemoglobin 30 pg (25-35) Mean Corpuscular Hemoglobin Concent 35 g/dL (31-37) Red Cell Distribution Width 14.2 % (11.5-14.5) Platelet Count 529 x10^3/uL (140-400) Sodium Level 138 mmol/L (136-145) Potassium Level 3.6 mmol/L (3.5-5.1) Chloride Level 102 mmol/L (98-107) Carbon Dioxide Level 28 mmol/L (21-32) Anion Gap 8 (6-14) Blood Urea Nitrogen 32 mg/dL (7-20) Creatinine 1.4 mg/dL (0.6-1.0) Estimated GFR (Cockcroft-Gault) 36.9 Glucose Level 113 mg/dL (70-99) Calcium Level 8.6 mg/dL (8.5-10.1) Assessment and Plan Assessmemt and Plan Problems Medical Problems: (1) Hematemesis Status: Acute Comment Review of Relevant I have reviewed the following items lynn (where applicable) has been applied. Medications: Current Medications Medications (Trade) Dose Ordered Sig/Ajay Route PRN Reason Start Time Stop Time Status Last Admin Dose Admin Pantoprazole Sodium (Protonix) 40 mg DAILYAC PO 01/28/21 07:30 01/28/21 09:00 Justifications for Admission Abdominal Pain Indications Is NPO status required?: Yes Justification for admission: Patient may require to be NPO for greater 24hours making it medically necessary to manage patient as inpatient. Other Justification KESHA OZUNA MD Jan 28, 2021 14:23
--- NOTE | 2021-01-28 14:26 | PDOC3 ---
Discharge Summary Visit Information Date of Admission: Jan 26, 2021 Date of Discharge: Jan 28, 2021 Final Diagnosis Problems Medical Problems: (1) Hematemesis Status: Acute Brief Hospital Course Allergies Allergies Coded Allergies Type Severity Reaction Last Updated Verified No Known Drug Allergies 12/06/20 No Vital Signs Vital Signs Date Time Temp Pulse Resp B/P (MAP) Pulse Ox O2 Delivery O2 Flow Rate FiO2 01/28/21 11:00 98.2 78 17 123/70 (87) 98 Room Air 98.2 Lab Results Laboratory Tests Test 01/27/21 07:15 01/28/21 07:40 White Blood Count 9.1 x10^3/uL (4.0-11.0) 8.4 x10^3/uL (4.0-11.0) Red Blood Count 2.83 x10^6/uL (3.50-5.40) 2.60 x10^6/uL (3.50-5.40) Hemoglobin 8.3 g/dL (12.0-15.5) 7.7 g/dL (12.0-15.5) Hematocrit 24.4 % (36.0-47.0) 22.3 % (36.0-47.0) Mean Corpuscular Volume 86 fL (79-100) 86 fL (79-100) Mean Corpuscular Hemoglobin 30 pg (25-35) 30 pg (25-35) Mean Corpuscular Hemoglobin Concent 34 g/dL (31-37) 35 g/dL (31-37) Red Cell Distribution Width 14.5 % (11.5-14.5) 14.2 % (11.5-14.5) Platelet Count 526 x10^3/uL (140-400) 529 x10^3/uL (140-400) Neutrophils (%) (Auto) 76 % (31-73) Lymphocytes (%) (Auto) 15 % (24-48) Monocytes (%) (Auto) 7 % (0-9) Eosinophils (%) (Auto) 1 % (0-3) Basophils (%) (Auto) 0 % (0-3) Neutrophils # (Auto) 6.9 x10^3/uL (1.8-7.7) Lymphocytes # (Auto) 1.3 x10^3/uL (1.0-4.8) Monocytes # (Auto) 0.6 x10^3/uL (0.0-1.1) Eosinophils # (Auto) 0.1 x10^3/uL (0.0-0.7) Basophils # (Auto) 0.0 x10^3/uL (0.0-0.2) Erythrocyte Sedimentation Rate 118 (0-25) Sodium Level 137 mmol/L (136-145) 138 mmol/L (136-145) Potassium Level 3.5 mmol/L (3.5-5.1) 3.6 mmol/L (3.5-5.1) Chloride Level 103 mmol/L (98-107) 102 mmol/L (98-107) Carbon Dioxide Level 27 mmol/L (21-32) 28 mmol/L (21-32) Anion Gap 7 (6-14) 8 (6-14) Blood Urea Nitrogen 39 mg/dL (7-20) 32 mg/dL (7-20) Creatinine 1.5 mg/dL (0.6-1.0) 1.4 mg/dL (0.6-1.0) Estimated GFR (Cockcroft-Gault) 34.0 36.9 Glucose Level 118 mg/dL (70-99) 113 mg/dL (70-99) Calcium Level 8.7 mg/dL (8.5-10.1) 8.6 mg/dL (8.5-10.1) C-Reactive Protein, Quantitative 56.1 mg/L (0-3.3) Laboratory Tests Test 01/28/21 07:40 White Blood Count 8.4 x10^3/uL (4.0-11.0) Red Blood Count 2.60 x10^6/uL (3.50-5.40) Hemoglobin 7.7 g/dL (12.0-15.5) Hematocrit 22.3 % (36.0-47.0) Mean Corpuscular Volume 86 fL (79-100) Mean Corpuscular Hemoglobin 30 pg (25-35) Mean Corpuscular Hemoglobin Concent 35 g/dL (31-37) Red Cell Distribution Width 14.2 % (11.5-14.5) Platelet Count 529 x10^3/uL (140-400) Sodium Level 138 mmol/L (136-145) Potassium Level 3.6 mmol/L (3.5-5.1) Chloride Level 102 mmol/L (98-107) Carbon Dioxide Level 28 mmol/L (21-32) Anion Gap 8 (6-14) Blood Urea Nitrogen 32 mg/dL (7-20) Creatinine 1.4 mg/dL (0.6-1.0) Estimated GFR (Cockcroft-Gault) 36.9 Glucose Level 113 mg/dL (70-99) Calcium Level 8.6 mg/dL (8.5-10.1) Brief Hospital Course Ms. Harper is a 75 old female who presented with: Hematemesis Intractable left foot pain YARED - likely vasomotor nephropathy Ms Harper is a 75 year old female w/ PMHx HTN, CAD with SERGE x1, HLD, anxiety who present to ER for evaluation of vomiting blood 01/25/21 in the morning. Patient vomited one time, she noted blood in her vomitus. Her brought it in and there was > 500cc red gelatinous material. Patient is only on a baby aspirin a day, has been instructed by her primary care physician not to take ibuprofen to avoid renal side effects. She does have epigastric abdominal pain with associated nausea, denies any constipation or diarrhea and no blood in the stool, but has had dark tarry stools over the past 24 hours. Patient just had one episode of vomiting blood in the morning. Patient denies any headache. Patient was diagnosed with cellulitis of her left foot on January 17, 2021 and p ossible left bakers cyst. Patient was put on doxycycline 100 mg twice a day and topical voltaren with some improvement. Since then over the past 2 days she has had more severe pain in the dorsum of her left foot and today is unable to bear weight on it. WBC 12.7, Hb 8.4, platelets 545, NA 134, K3.8, BUN 82, CR 1.9, glucose 194, calcium 9, mag 1.6, bilirubin 0.2, AST 11, ALT 14, albumin 2.5, acetaminophen level undetectable, gastric occult positive. Acute abdominal series with no obstruction no acute abnormalities. 01/27: Afebrile. COVID-19 test positive, but asymptomatic and breathing on room air. She is scheduled to have a EGD today, but not sure at this time how this COVID-19 diagnosis will affect these plans. Seen by podiatry for left foot edema; due to some concern for possible septic joint I believe podiatry is planning possible joint tap pending CRP and sed rate. She does note improved swelling and pain in this foot. 01/28: Hemoglobin stable, 7.7 today. Per GI, follow-up as outpatient for EGD and colonoscopy; continue PPI. She deferred joint tap of her foot yesterday. Discussed with Dr. Hammond, given relatively low inflammatory markers we have low concern for septic joint. Blood cultures with no growth to date. We did discuss possibility of MRI, but this would be difficult inpatient. Would be more prudent to pursue MRI in clinic with Dr. Hammond; discussed this with patient. She has rolling walker to ambulate upon discharge. Will prescribe Protonix upon discharge and tramadol for pain. COVID-19 positive, but fully vaccinated. Recommend patient to self isolate 10 days from diagnosis (until 02/06/2021), at which time if she is still asymptomatic she could consider herself recovered. Discharge Information Condition at Discharge: Stable Disposition/Orders: D/C to Home Scheduled Aspirin (Aspirin) 81 Mg Tab.chew, 81 MG PO DAILY for PPX, (Reported) Entered as Reported by: MARIBEL SANTOS on 12/06/20923 Last Action: HELD on 01/26/21848 by VANDANA GANDHI MD Atorvastatin Calcium (Atorvastatin Calcium) 40 Mg Tablet, 40 MG PO DAILY for FOR CHOLESTEROL, #30 Ref 0 (Reported) Entered as Reported by: MARIBEL SANTOS on 12/06/20923 Last Action: Reviewed on 01/26/21100 by POPPY RAMÍREZ Lisinopril/Hydrochlorothiazide (Lisinopril-Hctz 10-12.5 Mg Tab) 1 Each Tablet, 1 TAB PO DAILY, #90 Ref 3 (Reported) Entered as Reported by: MARIBEL SANTOS on 12/06/20923 Last Action: Reviewed on 01/26/21100 by POPPY RAMÍREZ Justicifation of Admission Dx: Justifications for Admission: Justification of Admission Dx: Yes KESHA OZUNA MD Jan 28, 2021 14:26
[2021-01-28] MEDS ORDERED: TRAM100T2 PO (14:31)
[2021-01-28] MEDS ORDERED: PANT40TA77 PO (14:31)
--- NOTE | 2021-01-28 15:15 | NUR ---
DISCHARGE INSTRUCTIONS GIVEN, QUESTIONS AND CONCERNS ANSWERED, PATIENT VERBALIZED UNDERSTANDING OF DISCHARGE INFORMATION INCLUDING TAKING ALL MEDICATIONS INSTRUCTED AND FOLLOWING UP WITH YOUR PRIMARY PROVIDER IN 1-2 WEEKS. ALL PERSONAL BELONGINGS GATHERED BY THE PATIENT AND PLACED IN BAGS FOR DISCHARGE.
--- NOTE | 2021-01-28 15:56 | NUR ---
PATIENT LEAVES THE UNIT PER W/C AND ACCOMPANIED BY THIS [employer] HELPER, EMOTIONAL SUPPORT GIVEN, FOLLOW UP APPOINTMENTS ENCOURAGED.
== END 2021-01-28 15:56 | disposition home or self-care (01) | DRG 377 ==
LOC: ER 17:11 → 5 SOUTH 19:25
PROVIDERS: ADMIT Internal Medicine; ATTEND Internal Medicine
PROC: 30233N1 Transfusion of Nonautologous Red Blood Cells into Peripheral Vein, Percutaneous Approach (ICD-10-PCS; principal; 2021-01-26)
DX: K92.0 Hematemesis (principal); N17.0 Acute kidney failure with tubular necrosis; U07.1 COVID-19; D62 Acute posthemorrhagic anemia; E87.1 Hypo-osmolality and hyponatremia; F84.0 Autistic disorder; M00.9 Pyogenic arthritis, unspecified; D63.8 Anemia in other chronic diseases classified elsewhere; E53.8 Deficiency of other specified B group vitamins; E78.5 Hyperlipidemia, unspecified; E86.1 Hypovolemia; F32.A Depression, unspecified; F41.9 Anxiety disorder, unspecified; I10 Essential (primary) hypertension; I25.10 Atherosclerotic heart disease of native coronary artery without angina pectoris; K27.9 Peptic ulcer, site unspecified, unspecified as acute or chronic, without hemorrhage or perforation; M19.90 Unspecified osteoarthritis, unspecified site; M41.9 Scoliosis, unspecified; M77.9 Enthesopathy, unspecified; Z82.49 Family history of ischemic heart disease and other diseases of the circulatory system; Z79.82 Long term (current) use of aspirin; Z95.5 Presence of coronary angioplasty implant and graft
CPT/HCPCS: 36415; 36430; 73630; 74022; 80048; 80053; 80329; 82271; 82607; 83540; 83550; 83735; 85025; 85027; 85045; 85610; 85651; 85730; 86140; 86850; 86900; 86901; 86920; 87040; 87426; 90471; 90686; C9113; J2270; J3420; J3475; J7030; P9016; U0003; U0005; 99285-25; G0378; G0480

== ENCOUNTER → 2021-03-30 | Day surgery (SDC) | payer MEDICARE ==
[~2021-03-30] VITALS: Ht 162.6 cm; Wt 98.0 kg
[~2021-03-30] MED LIST changes: +CELE200C PO; +HYDROmorphone 2 MG/ML VIAL IVP PRN; +IV RINGERS,LACTATED 1000ML 1,000 ML IV SCH; -LISI1TAB23 PO; +LISI1TAB35 PO; +MORPHINE SULFATE 2 MG/ML INJ. IVP PRN; +PANT40TA77 PO; +PROCHLORPERAZINE 10 MG/2 ML VIAL. IVP PRN; +PROPOFOL 10 MG/ML (20ML) VIAL. IV ONE; +TRAM100T2 PO; +fentaNYL PF VIAL 100 MCG/2 ML VIAL IVP PRN
[2021-03-30 08:45] VITALS: BP 157/72
--- NOTE | 2021-03-30 09:41 | CONS ---
DATE OF CONSULTATION: 03/30/2021 UPDATED HISTORY AND PHYSICAL REASON FOR CONSULTATION: Anemia. HISTORY OF PRESENT ILLNESS: A 75-year-old female with past medical history significant for hyperlipidemia, osteoarthrosis, hypertension, gastroesophageal reflux disease, status post cardiac stents and angioplasty, is seen with previous low hemoglobin 7.2. She was recovered as an inpatient from earlier in the year with COVID. No melena and/or hematochezia is noted. Weight and appetite are stable. No previous endoscopy had been performed. She has proceed now as her strength and energy have improved since recovering from the COVID. PAST MEDICAL HISTORY: Osteoarthrosis, history of cardiac stents, hypertension, hyperlipidemia and anemia. ALLERGIES: None. MEDICATIONS: Include Aspirin, atorvastatin, Celebrex, Cymbalta, lisinopril, hydrochlorothiazide, pantoprazole. FAMILY HISTORY: Significant for diabetes and MS with father, hypertension in both parents. SOCIAL HISTORY: Former smoker and nondrinker. PAST SURGICAL HISTORY: Noncontributory. REVIEW OF SYSTEMS: Per records. PHYSICAL EXAMINATION: VITAL SIGNS: Temperature is 97.8, pulse 86, respirations 20. LUNGS: Clear. CARDIOVASCULAR: Reveals an S1, S2, without S3, S4 or appreciable murmur. ABDOMEN: Reveals a soft abdomen, normal bowel sounds without appreciable hepatosplenomegaly. IMPRESSION: Chronic anemia, blood loss. Differential includes ulcers gastric, colon, esophageal cancer, polyps, AVMs, IBD, celiac disease. Therefore, recommend upper endoscopy and colonoscopy to further assess. Risks and benefits were previously discussed. The patient is willing to proceed at this time. JERROD DR: Nella TID: [id number]
[2021-03-30 09:55] VITALS: BP 145/80
== END | disposition home or self-care (01) ==
LOC: ENDOS 08:23
PROVIDERS: ATTEND Internal Medicine Gastroenterology
DX: D50.9 Iron deficiency anemia, unspecified (principal); K64.0 First degree hemorrhoids; K21.9 Gastro-esophageal reflux disease without esophagitis; K57.30 Diverticulosis of large intestine without perforation or abscess without bleeding; K29.50 Unspecified chronic gastritis without bleeding; R58 Hemorrhage, not elsewhere classified; K63.89 Other specified diseases of intestine; K31.89 Other diseases of stomach and duodenum; I10 Essential (primary) hypertension; M19.90 Unspecified osteoarthritis, unspecified site; E78.00 Pure hypercholesterolemia, unspecified; Z87.891 Personal history of nicotine dependence; Z95.5 Presence of coronary angioplasty implant and graft; Z79.82 Long term (current) use of aspirin; Z79.899 Other long term (current) drug therapy; Z98.890 Other specified postprocedural states; Z82.49 Family history of ischemic heart disease and other diseases of the circulatory system; Z83.3 Family history of diabetes mellitus
CPT/HCPCS: 43235; 45378; J2704